=== PATIENT | female | born 1990 | race Caucasian/White ===

== ENCOUNTER 2024-04-05 15:52 | Emergency (ER) | payer OTHER, SELFPAY ==
--- NOTE | ~2024-04-05 | US_ITS ---
EXAMINATION: US OBSTETRICAL ULTRASOUND CLINICAL INFORMATION: patient with vaginal bleeding. COMPARISON: None available. LMP: 02/03/2024. Gestational age by maternal dates is 8 weeks 6 days. Estimated date of delivery by maternal dates is 11/09/2024. TECHNIQUE: Real-time scanning of the pelvis is acquired via transabdominal and transvaginal approach. FINDINGS: Uterus is anteverted in orientation. The cervix is closed. There is a single intrauterine gestational sac with visible yolk sac, embryo, and embryonic cardiac activity. Small subchorionic hemorrhage is noted on the posterior inferior aspect of the gestational sac, measuring 1.2 x 0.6 x 1.1 cm. Embryo HR: 163 beats per minute. CRL (crown rump length): 1.6 cm (8 weeks 1 day +/- 4 days). DUSTY (estimated date of delivery): 11/14/2024 +/- 4 days. MATERNAL ADNEXA: The right maternal ovary measures 3.2 x 2.4 x 2.8 cm, volume 11.1 mL. There is a 1.5 x 1.8 x 1.6 cm corpus luteal cyst in the right ovary. The left maternal ovary measures 2.7 x 2.0 x 1.6 cm, volume 4.4 mL. The ovary is unremarkable in appearance. There is no significant maternal adnexal mass. No maternal pelvic ascites. US/US OB pelvic and transvaginal IMPRESSION: 1. Single intrauterine gestation with ultrasound gestational age of 8 weeks 1 day +/- 4 days. Small subchorionic hemorrhage is noted. The cervix appears closed. 2. Estimated date of delivery is 11/14/2024 +/- 4 days. 3. No maternal adnexal mass or pelvic ascites. Electronically signed by: Carmina Leigh MD 04/05/2024 06:52 PM EDT
[2024-04-05 16:31] VITALS: BP 131/79; PULSE 90; RESP 18; TEMP 36.9; O2SAT 99; BMI 42.8
--- NOTE | 2024-04-05 16:34 | ED_ITS ---
HPI - General Adult General Chief complaint: Vaginal Bleeding Stated complaint: 8 weeks preg/bleeding Time Seen by Provider: 04/05/24 20:00 History of Present Illness ED Provider: Lillie VINSON narrative: The patient is a 33-year-old female who presents saying that she is approximately 8 weeks . She says that today she was doing nothing in particular when she lies that she was passing some blood from her vagina. This was not in response to any activity or stress or straining. No injury. The bleeding was not associated with any pain. She came directly to the emergency room. Since the original bleeding began the rate of bleeding seems to have subsided and now she is reporting that she is only having spotting. This is the patient's 2nd . Her 1st was uneventful. She plans on getting her OB care through [facility]. She has had 1 visit to confirm the but no actual visit yet. Related Data Allergies Allergy/AdvReac Type Severity Reaction Status Date / Time SEASONAL ALLERGIES Allergy Unknown ITCHY, Uncoded 04/05/24 16:33 NASAL CONGESTION Review of Systems 2 Review of Systems: Yes all other systems are reviewed and are negative PMFSH Social History Social History Smoked in Last 30 Days: No Use of substances other than those prescribed or required for medical reasons: No Advance Directives: No Advance Directives Information Provided: No Patient : No Physical Exam ED Vital Signs: Vital Signs - 24 hr 04/05/24 16:31 04/05/24 19:38 04/05/24 20:52 Temperature 98.4 F 98.2 F 98.2 F Pulse Rate 90 95 95 Respiratory Rate 18 16 16 Blood Pressure 131/79 123/75 123/75 Pulse Oximetry 99 97 97 Oxygen Delivery Method Room Air Room Air Room Air BMI result Body Mass Index 42.8 Const Other: The patient is awake, alert, pleasant, cooperative. She does not appear in any distress. HENMT Head: Yes normal to inspection Face and sinus: Yes normal facial exam Mouth: Normal oral and palatal mucosa present and moist mucous membranes Eyes General: appearance normal, both eyes and all related structures Resp Effort & Inspection: normal respiratory effort Auscultation: clear to auscultation bilaterally Cardio Rate: regular rate Rhythm: regular rhythm Heart sounds: S1 normal heart sound present and S2 normal heart sound present GI Other: The abdomen is soft and nontender Skin Other: Skin is dry and unremarkable Neuro Other: The patient is awake and alert with a normal mental status and seems grossly neurologically intact. Extrem Other: No peripheral edema Course Course Course Narrative: RME: DOne by Mart Zapata. 33 yold female . Patient states vaginal bleeding starting today with 8 weeks . Patient has not yet ultrasound. Patient denies any abdominal pain. Medications Administered Discontinued Medications Generic Name Dose Route Start Last Admin Trade Name Freq PRN Reason Stop Dose Admin Rho Immune Globulin 300 mcg 04/05/24 20:37 04/05/24 20:48 Rho(D) Immune Globulin 300 Mcg Syringe IM 04/05/24 20:38 300 mcg ONCE ONE Administration Medical Decision Making Medical Decision Making MDM Narrative: The patient is approximately 8 weeks and she presents with spontaneous painless vaginal bleeding. Ultrasound shows a live intrauterine with a heart rate of 160. There is a small subchorionic likely the explanation for her vaginal bleeding. The patient has a blood type of A negative. I spoke to the molder pipe covering covering for the patient's OB practice (a [facility] [place] practice). The patient will be given 300 mcg of RhoGAM and discharged follow up with the Ob practice as an outpatient. Lab Data 04/05/24 16:58 04/05/24 17:04 Labs: Lab Results 04/05/24 04/05/24 04/05/24 Range/Units 16:45 16:55 16:58 WBC 10.2 (4.8-10.8) X10*3/uL RBC 4.47 (4.20-5.50) X10*6/uL Hgb 13.4 (12.0-16.0) g/dl Hct 38.4 (37.0-47.0) % MCV 85.9 (80.0-98.0) fL MCH 30.0 (27.0-33.0) pg MCHC 34.9 (31.0-35.0) g/dl RDW 12.3 (11.0-16.0) % Plt Count 285 (160-400) X10*3/uL MPV 10.3 (9.4-12.3) fL Immature Gran % (Auto) 0.2 (0.0-0.4) % Neut % (Auto) 74.1 H (45-73) % Lymph % (Auto) 18.2 L (20-40) % [place] % (Auto) 6.2 (2-11) % Eos % (Auto) 0.8 (0-4) % Baso % (Auto) 0.5 (0-2) % Lymph # (Auto) 1.9 (1.2-4.9) X10*3/uL [place] # (Auto) 0.6 (0.1-1.2) X10*3/uL Eos # (Auto) 0.1 (0.0-0.4) X10*3/uL Baso # (Auto) 0.1 (0.0-0.2) X10*3/uL Abs Immat Gran (auto) 0.02 (0.00-0.03) X10*3/uL Absolute Neuts (auto) 7.5 (2.0-8.3) x10*3/uL Absolute Nucleated RBC 0.000 (0.0-0.012) X10*3/uL Nucleated RBC % (auto) 0.0 (0.0-0.2) /100WBC Hold Purple Top SEE NOTE PT 11.6 (10.9-12.4) SEC INR 1.0 (0.9-1.1) APTT 29.8 (26.0-36.8) SEC Sodium (135-145) mmol/L Potassium (3.3-5.1) mmol/L Chloride (96-108) mmol/L Carbon Dioxide (22-29) mmol/L Anion Gap (12-20) BUN (9-16) mg/dL Creatinine (0.5-1.4) mg/dL Estim Creat Clear Calc Estimated GFR Random Glucose (60-115) mg/dL Calcium (8.4-10.2) mg/dL Total Bilirubin (0.0-1.0) mg/dL AST (5-31) U/L ALT (0-31) U/L Alkaline Phosphatase (39-117) U/L Total Protein (6.5-8.0) g/dL Albumin (3.5-5.0) g/dL Beta HCG, Quant mIU/mL Urine Color RED Urine Appearance Hazy Urine pH 6.5 (5.0-9.0) Ur Specific [place] 1.025 (1.005-1.025) Urine Protein See Note (Neg-Trace) mg/dL Urine Glucose (UA) 100 H (Negative) mg/dL Urine Ketones >=80 (Negative) mg/dL Urine Blood Large (3+) H (Negative) Urine Nitrite See Note (Negative) Ur Leukocyte Esterase See Note (Negative) Urine RBC >20 H (0-2) /HPF Urine WBC 6-10 (0-5) /HPF Ur Squamous Epith Cells 3-5 (0-2) /HPF Urine Bacteria 3+ (None Seen) Hyaline Casts 0-2 (0-2) /LPF Urine Test POSITIVE H (NEGATIVE) Blood Type A Negative 04/05/24 Range/Units 17:04 WBC (4.8-10.8) X10*3/uL RBC (4.20-5.50) X10*6/uL Hgb (12.0-16.0) g/dl Hct (37.0-47.0) % MCV (80.0-98.0) fL MCH (27.0-33.0) pg MCHC (31.0-35.0) g/dl RDW (11.0-16.0) % Plt Count (160-400) X10*3/uL MPV (9.4-12.3) fL Immature Gran % (Auto) (0.0-0.4) % Neut % (Auto) (45-73) % Lymph % (Auto) (20-40) % [place] % (Auto) (2-11) % Eos % (Auto) (0-4) % Baso % (Auto) (0-2) % Lymph # (Auto) (1.2-4.9) X10*3/uL [place] # (Auto) (0.1-1.2) X10*3/uL Eos # (Auto) (0.0-0.4) X10*3/uL Baso # (Auto) (0.0-0.2) X10*3/uL Abs Immat Gran (auto) (0.00-0.03) X10*3/uL Absolute Neuts (auto) (2.0-8.3) x10*3/uL Absolute Nucleated RBC (0.0-0.012) X10*3/uL Nucleated RBC % (auto) (0.0-0.2) /100WBC Hold Purple Top PT (10.9-12.4) SEC INR (0.9-1.1) APTT (26.0-36.8) SEC Sodium 138 (135-145) mmol/L Potassium 3.5 (3.3-5.1) mmol/L Chloride 105 (96-108) mmol/L Carbon Dioxide 23 (22-29) mmol/L Anion Gap 14 (12-20) BUN 6 L (9-16) mg/dL Creatinine 0.59 (0.5-1.4) mg/dL Estim Creat Clear Calc 156.7 Estimated GFR > 60 Random Glucose 100 (60-115) mg/dL Calcium 9.6 (8.4-10.2) mg/dL Total Bilirubin 1.0 (0.0-1.0) mg/dL AST 14 (5-31) U/L ALT 11 (0-31) U/L Alkaline Phosphatase 76 (39-117) U/L Total Protein 7.3 (6.5-8.0) g/dL Albumin 4.1 (3.5-5.0) g/dL Beta HCG, Quant 56626 mIU/mL Urine Color Urine Appearance Urine pH (5.0-9.0) Ur Specific [place] (1.005-1.025) Urine Protein (Neg-Trace) mg/dL Urine Glucose (UA) (Negative) mg/dL Urine Ketones (Negative) mg/dL Urine Blood (Negative) Urine Nitrite (Negative) Ur Leukocyte Esterase (Negative) Urine RBC (0-2) /HPF Urine WBC (0-5) /HPF Ur Squamous Epith Cells (0-2) /HPF Urine Bacteria (None Seen) Hyaline Casts (0-2) /LPF Urine Test (NEGATIVE) Blood Type Discharge Plan Discharge Clinical Impression: Vaginal bleeding, Subchorionic hemorrhage in first trimester Patient Disposition: Home, Self-Care Instructions: Rh (By injection), Subchorionic Hemorrhage (ED) Additional Instructions: Your ultrasound shows that the source of bleeding was from what is called a ?subchorionic hemorrhage. ? This is a common source of bleeding during that usually resolves on its own over several days. Your testing was otherwise unremarkable and reassuring. Your testing shows that your blood type today is A negative. The negative refers to your Rh factor. women who are Rh negative and have bleeding episodes are given a dose of a medication called RhoGAM to help prevent complications later in the that can be related to the blood type of the fetus and the mother. You received 300 mcg of RhoGAM today. I spoke to one of the midwives at the [facility]. The molder pipe covering requested that you call their office tomorrow morning to schedule a follow up appointment for this week. Please call them if you have any additional questions or return to the emergency room if significantly worse. Interventions: ED Discharge Assessment Last Done: 04/05/24 20:52 Discharge Date/Time: 04/05/24 20:53 Print Language: Ivorian
[2024-04-05 17:12] LABS: MANUAL DIFF FLAG NO
[2024-04-05 17:15] LABS: Basophils Absolute Auto 0.1 X10*3/uL (0.0-0.2); Basophils Percent Auto 0.5 % (0-2); Eosinophils Absolute Auto 0.1 X10*3/uL (0.0-0.4); Eosinophils Percent Auto 0.8 % (0-4); Hematocrit 38.4 % (37.0-47.0); Hemoglobin 13.4 g/dl (12.0-16.0); Imm Gran Abs Auto 0.02 X10*3/uL (0.00-0.03); Imm Gran Pct Auto 0.2 % (0.0-0.4); Lymphocytes Absolute Auto 1.9 X10*3/uL (1.2-4.9); Lymphocytes Percent Auto 18.2 % (20-40); Mean Corpuscular HGB Conc 34.9 g/dl (31.0-35.0); Mean Corpuscular Volume 85.9 fL (80.0-98.0); Mean Platelet Volume 10.3 fL (9.4-12.3); Monocytes Absolute Auto 0.6 X10*3/uL (0.1-1.2); Monocytes Percent Auto 6.2 % (2-11); Neutrophils Absolute Auto 7.5 x10*3/uL (2.0-8.3); Neutrophils Percent Auto 74.1 % (45-73); Platelet Count 285 X10*3/uL (160-400); Red Blood Count 4.47 X10*6/uL (4.20-5.50); Red Cell Distribution Width 12.3 % (11.0-16.0); White Blood Count 10.2 X10*3/uL (4.8-10.8)
[2024-04-05 17:23] LABS: Prothrombin Time 11.6 SEC (10.9-12.4)
[2024-04-05 17:26] LABS: Partial Thromboplastin Time 29.8 SEC (26.0-36.8)
[2024-04-05 17:30] LABS: Appearance Urine Hazy; Color Urine RED; Specific Gravity - Urine 1.025 (1.005-1.025); UMIC TRIGGER UACC YES; Urine Blood Large (3+) (Negative)
[2024-04-05 17:39] LABS: UPreg QC Valid YES; Urine Pregnancy POSITIVE (NEGATIVE)
[2024-04-05 17:42] LABS: Alanine Aminotransferase 11 U/L (0-31); Albumin Level 4.1 g/dL (3.5-5.0); Alkaline Phosphatase 76 U/L (39-117); Anion Gap 14 (12-20); Aspartate Amino Transferase 14 U/L (5-31); Blood Urea Nitrogen 6 mg/dL (9-16); Calcium 9.6 mg/dL (8.4-10.2); Carbon Dioxide 23 mmol/L (22-29); Chloride 105 mmol/L (96-108); Creatinine Clr Calc Pharmacy 156.7; Estimated Glomerular Filt Rate > 60; Glucose Random 100 mg/dL (60-115); Potassium 3.5 mmol/L (3.3-5.1); Sodium 138 mmol/L (135-145); Total Protein 7.3 g/dL (6.5-8.0)
[2024-04-05 18:09] LABS: HCG Quantitative 94660 mIU/mL
[2024-04-05 18:19] LABS: PH 6.5 (5.0-9.0)
[2024-04-05 18:20] LABS: Glucose Urine UA 100 mg/dL (Negative)
[2024-04-05 18:22] LABS: Urine Ketones >=80 mg/dL (Negative)
[2024-04-05 18:24] LABS: Bacteria Urine 3+ (None Seen); Hyaline Casts Urine 0-2 /LPF (0-2); RBC Urine >20 /HPF (0-2); UACC Culture Trigger YES
[2024-04-05 19:38] VITALS: BP 123/75; PULSE 95; RESP 16; TEMP 36.8; O2SAT 97
[2024-04-05] MEDS: Rho(D) Immune Globulin 300 MCG SYRINGE IM (20:48)
[2024-04-05 20:52] VITALS: BP 123/75; PULSE 95; RESP 16; TEMP 36.8; O2SAT 97
== END 2024-04-05 20:53 | disposition home or self-care (01) ==
PROVIDERS: Physician Assistant; Emergency Provider Emergency Medicine
DX: O20.9 Hemorrhage in early pregnancy, unspecified (principal); Z3A.08 8 weeks gestation of pregnancy; R10.2 Pelvic and perineal pain; Z79.899 Other long term (current) drug therapy
CPT/HCPCS: 36415; 76801; 76817; 80053; 81001; 81025; 84702; 85025; 85610; 85730; 86900; 86901; 87086; 99284; J2790

== ENCOUNTER 2024-06-02 08:48 | Outpatient (AMB) | payer OTHER, SELFPAY ==
[2024-06-02 09:26] VITALS: BP 108/72; PULSE 102; TEMP 36; O2SAT 95
--- NOTE | 2024-06-02 09:26 | AM.OFFWIN_ITS ---
Intake Vital Signs 06/02/24 09:26 Weight 238 lb BP 108/72 Blood Pressure Location Rt brachial Position Sitting Pulse 102 H Pulse Source Pulse Oximeter Temp 96.8 F Temp Source Temporal Artery Scan Pulse Oximetry (%) 95 Intake Visit Reasons: [employer] chest (burning sensation) cough Intake Note: Patient here for cough that started yesterday. Patient Tobacco Use Status: Never used Tobacco Allergies SEASONAL ALLERGIES Allergy (Unknown, Uncoded 06/02/24 09:27) ITCHY, NASAL CONGESTION Do you need a note to return to daycare/school/sports/work: Yes HPI HPI Comments History of Present Illness Details This is a 34-year-old female, , with no stated past medical history presenting for evaluation of a cough and sore throat that she has had for the past 1 day. Patient denies having any fevers, chills, ear pain, chest pain or shortness for breath. She has been using cough drops only without relief of her symptoms. [facility] Social History Patient Tobacco Use Status: Never used Tobacco Review of Systems Const All systems reviewed & are unremarkable except as noted in HPI and below Denies chills, Reports fatigue and Denies fever(s) Eyes Reports no additional complaints ENT Reports no additional complaints, Denies otalgia, Denies nasal discharge, Denies sinus pressure, Reports sore throat and Denies throat swelling Card Reports as per HPI and Denies chest pain Resp Reports as per HPI, Reports cough, Denies hemoptysis, Denies stridor and Denies wheezing GI Reports no additional complaints Reports no additional complaints Musc Reports no additional complaints Skin/Breast Reports system reviewed and no additional complaints, except as documented Neuro Reports no additional complaints Psych Reports no additional complaints Endo Reports no additional complaints and Reports fatigue Zaid/Lymph Reports no additional complaints Aller/Immun Reports no additional complaints, Denies throat swelling and Denies wheezing Physical Exam Vital Signs: Last Vital Signs Temp 96.8 F 06/02/24 09:26 Pulse 102 H 06/02/24 09:26 BP 108/72 06/02/24 09:26 Pulse Ox 95 06/02/24 09:26 Const General: cooperative, healthy appearing, comfortable, no acute distress, well developed, alert and awake Nutritional Appearance: well nourished Orientation/consciousness: patient oriented x3 Limitations: no limitations HEENT Head: Yes normal to inspection and Yes normocephalic Ears: hearing grossly normal bilaterally, external ears normal, TM's normal bilaterally and EAC's normal General nose exam: Normal external nose present Face and sinus: Yes normal facial exam and Yes sinuses nontender Mouth: Normal oral and palatal mucosa present and moist mucous membranes Throat: Yes posterior oropharynx normal and Yes postnasal drainage Eyes General: appearance normal, both eyes and all related structures Visual Patel: normal visual patel by confrontation Periorbital: periorbital findings normal Eyelids: Yes eyelids normal Conjunctivae: conjunctivae normal EOM: EOMs intact bilaterally Neck Lymphatic: no lymphadenopathy noted Resp Effort & Inspection: normal respiratory effort, able to speak in complete sentences, Actively coughing and no respiratory distress Auscultation: clear to auscultation bilaterally Cardio Rate: regular rate (88 bpm upon examination) Rhythm: regular rhythm Skin General skin exam: no rashes or lesions noted Neuro General: patient oriented x3 Psych Appearance: grossly normal Mental Status: mental status grossly normal Insight: Good insight present (Psych) Judgement: Good judgement present (Psych) Assessment & Plan Assessment & Plan (1) Acute upper respiratory infection: Comment: Patient is afebrile and in no acute distress. No imaging or other laboratories are warranted at this time given her history coupled with her examination. Code(s): J06.9 - Acute upper respiratory infection, unspecified Plan: Tylenol as needed for sore throat, increase clear fluids daily, rest as tolerated. Coding Level of Care Code Est Pt Level 3 (18970) Diagnoses Acute upper respiratory infection J06.9 Time Spent (min) 20
== END 2024-06-02 10:01 | disposition home or self-care (01) ==
PROVIDERS: Visit Provider Physician Assistant
DX: J06.9 Acute upper respiratory infection, unspecified (principal)

== ENCOUNTER → 2024-06-02 08:48 | Outpatient (BNVA) | payer OTHER, SELFPAY | PROVIDERS: Visit Provider Physician Assistant | DX: J06.9 Acute upper respiratory infection, unspecified (principal) | CPT/HCPCS: 99212 ==

== ENCOUNTER 2024-12-13 01:05 | Emergency (ER) | payer OTHER, SELFPAY ==
--- NOTE | ~2024-12-13 | US_ITS ---
CLINICAL HISTORY: RUQ pain, concern for GB US abdomen limited Comparison: None provided Findings: Partially visualized liver is normal in echotexture. There is no intrahepatic bile duct dilatation. The common duct is 5 mm in diameter. The gallbladder is nondilated. Multiple shadowing stones including at least 1 nonmobile stone in the gallbladder neck. Gallbladder wall thickening up to 5 mm with small volume pericholecystic fluid. Negative sonographic Flores's sign. The main portal vein is antegrade. IMPRESSION: Cholelithiasis with wall thickening and pericholecystic fluid. Despite a negative sonographic Flores's sign, findings are concerning for acute cholecystitis. This document has been electronically signed by: Ashley Burns MD on 12/13/2024 03:53:49
--- NOTE | ~2024-12-13 | CT_ITS ---
CLINICAL HISTORY: CBD stone? CT abdomen and pelvis without contrast Comparison: US - US ABDOMEN LIMITED - 12/13/24 02:32 EDT Findings: The lung bases are clear. Gallbladder wall thickening and gallstones noted. No significant pericholecystic stranding identified. No common bile duct dilation or common bile duct stone by CT. The unenhanced liver, spleen, adrenal glands and pancreas are unremarkable. Kidneys, ureters and bladder are normal Uterus and adnexa are within normal limits. Mild fecal retention throughout the colon. No small bowel obstruction or free air. No acute osseous finding. Impression: No evidence of common bile duct dilation or common bile duct stone by CT. Gallbladder wall thickening and cholelithiasis. Additional incidental findings This document has been electronically signed by: Jame Cochran MD on 12/13/2024 08:20:34
[2024-12-13 01:07] VITALS: BP 123/78; PULSE 69; RESP 18; TEMP 36.7; O2SAT 96; BMI 36.6
[2024-12-13 01:29] LABS: Basophils Percent Auto 0.3 % (0-2); Eosinophils Absolute Auto 0.1 X10*3/uL (0.0-0.4); Eosinophils Percent Auto 1.1 % (0-4); Hematocrit 37.3 % (37.0-47.0); Hemoglobin 12.6 g/dl (12.0-16.0); Imm Gran Abs Auto 0.03 X10*3/uL (0.00-0.03); Imm Gran Pct Auto 0.3 % (0.0-0.4); Lymphocytes Absolute Auto 1.1 X10*3/uL (1.2-4.9); Lymphocytes Percent Auto 12.9 % (20-40); MANUAL DIFF FLAG NO; Mean Corpuscular HGB Conc 33.8 g/dl (31.0-35.0); Mean Corpuscular Hemoglobin 29.2 pg (27.0-33.0); Mean Corpuscular Volume 86.5 fL (80.0-98.0); Mean Platelet Volume 10.7 fL (9.4-12.3); Monocytes Absolute Auto 0.6 X10*3/uL (0.1-1.2); Monocytes Percent Auto 6.6 % (2-11); Neutrophils Absolute Auto 6.9 x10*3/uL (2.0-8.3); Neutrophils Percent Auto 78.8 % (45-73); Platelet Count 283 X10*3/uL (160-400); Red Blood Count 4.31 X10*6/uL (4.20-5.50); Red Cell Distribution Width 13.2 % (11.0-16.0); White Blood Count 8.8 X10*3/uL (4.8-10.8)
[2024-12-13 01:47] LABS: Alanine Aminotransferase 263 U/L (0-31); Albumin Level 4.3 g/dL (3.5-5.0); Alkaline Phosphatase 244 U/L (39-117); Anion Gap 14 (12-20); Aspartate Amino Transferase 363 U/L (5-31); Bilirubin Total 1.6 mg/dL (0.0-1.0); Blood Urea Nitrogen 15 mg/dL (9-16); Calcium 10.2 mg/dL (8.4-10.2); Carbon Dioxide 26 mmol/L (22-29); Chloride 105 mmol/L (96-108); Creatinine Clr Calc Pharmacy 114.9; Estimated Glomerular Filt Rate > 60; Glucose Random 128 mg/dL (60-115); Potassium 3.4 mmol/L (3.3-5.1); Sodium 142 mmol/L (135-145); Total Protein 7.3 g/dL (6.5-8.0)
--- NOTE | 2024-12-13 01:51 | ED.GENADULT ---
HPI - General Adult General Chief complaint: Abdominal Pain Stated complaint: abd pain Time Seen by Provider: 12/13/24 01:50 Source: patient Mode of arrival: ambulatory Limitations: no limitations History of Present Illness ED Provider: Nidhi Burns PA-C HPI narrative: Patient is a 34 year old assigned female at with a history of recent delivery of child presenting to the emergency department today with upper abdominal pain. Patient states that last week she had an episode of upper abdominal pain that radiates to her back. Patient states that it went away so she didn't get evaluated for it. Patient states that tonight she had very painful upper abdominal pain that radiated to her back again. Patient denies any dizziness, lightheadedness, nausea, vomiting, fever, chills, blurry vision, double vision, loss of vision, chest pain, difficulty breathing, shortness of breath, back pain, night sweats, pain with urination, increased urinary frequency, increased urinary urgency, blood in her urine or stool, syncope or a near syncopal episode, recent trauma or falls, bowel incontinence, bladder incontinence, or any other complaints at this time. Relieving factors: none Exacerbating factors: none Associated symptoms: denies other symptoms Treatments prior to arrival: none Related Data Home Medications ?Medication ?Instructions ?Recorded ?Confirmed No Known Home Meds 12/13/24 12/13/24 Allergies Allergy/AdvReac Type Severity Reaction Status Date / Time SEASONAL ALLERGIES Allergy Unknown ITCHY, Uncoded 12/13/24 01:11 NASAL CONGESTION Review of Systems Constitutional: Constitutional: Reports no additional constitutional complaints, Denies chills, Denies fever(s) and Denies night sweats Eyes: Eyes: Reports no additional eye complaints, Denies blurry vision, Denies change in vision, Denies diplopia, Denies eye discharge, Denies loss of vision and Denies eye pain ENT: Denies dizziness Cardiovascular: Cardiovascular: Reports no additional cardiovascular complaints, Denies chest pain, Denies lightheadedness, Denies Loss of Consciousness and Denies dyspnea Respiratory: Respiratory: Reports no additional respiratory complaints and Denies dyspnea Gastrointestinal: Gastrointestinal: Reports no additional gastrointestinal complaints, Reports abdominal pain, Denies melena, Denies hematochezia, Denies change in bowel habits and Denies change in stool character Genitourinary: Genitourinary: Denies hematuria, Denies urinary frequency, Denies dysuria, Denies urinary incontinence, Denies urinary hesitancy and Denies urinary urgency Musculoskeletal: Musculoskeletal: Reports no additional musculoskeletal complaints, Denies numbness and Denies tingling Neurologic: Denies dizziness, Denies loss of vision, Denies numbness and Denies tingling Psychiatric: Psychiatric: Reports no additional psychiatric complaints Endocrine: Endocrine: Reports no additional endocrine complaints Hematologic/Lymphatic: Hematologic/Lymphatic: Reports no additional hematologic/lymphatic complaints Allergic/Immunologic: Allergic/Immunologic: Reports no additional allergic/immunologic complaints [facility] Past Medical History Attestation statement: The following information was validated with the patient. Source: old records reviewed and nursing notes reviewed Medical History Upper abdominal pain Social History Social History Patient Tobacco Use Status: Never used Tobacco Physical Exam ED Vital Signs: Vital Signs - 24 hr 12/13/24 01:07 12/13/24 04:46 12/13/24 09:26 Temperature 98.1 F 98.4 F 98.6 F Pulse Rate 69 63 58 Respiratory Rate 18 16 18 Blood Pressure 123/78 132/74 122/77 Pulse Oximetry 96 98 96 Oxygen Delivery Method Room Air Room Air Room Air BMI result Body Mass Index 36.6 Const General: cooperative, no acute distress, alert and awake Nutritional Appearance: well nourished Orientation/consciousness: patient oriented x3 HENMT Head: Yes normal to inspection and Yes atraumatic Ears: hearing grossly normal bilaterally and external ears normal General nose exam: Normal external nose present, no nasal discharge noted and no epistaxis Face and sinus: Yes normal facial exam, No abrasion and No laceration Mouth: Normal oral and palatal mucosa present, no drooling and no muffled voice Eyes General: appearance normal, both eyes and all related structures Periorbital: periorbital findings normal Eyelids: Yes eyelids normal Conjunctivae: conjunctivae normal Pupils: Equal, round and reactive pupils present EOM: EOMs intact bilaterally Neck Neck: Yes normal visual inspection, Yes full ROM and Yes no lymphadenopathy Resp Effort & Inspection: normal respiratory effort and able to speak in complete sentences GI Palpation (GI): Soft to palpation, not firm, Tenderness to palpation present (GI) in the RUQ, no guarding and not rigid Neuro General: patient oriented x3, moves all extremities and CN's II-XI intact bilaterally Cranial nerves: Yes Equal, round and reactive pupils present Cognition (Neuro): normal cognition Extrem General: Yes normal to inspection, Yes full ROM and Yes capillary refill normal Psych Appearance: grossly normal Mental Status: mental status grossly normal Affect: normal affect Attitude: cooperative Thought process: Normal thought process present Thought content: Normal thought content present Insight: Good insight present (Psych) Course Reevaluation(s) Reevaluation #1: Dr. Lucas evaluated the patient, patient is currently asymptomatic and we will follow up in his office for elective cholecystectomy Time: 09:02 Medical Decision Making Medical Decision Making MDM Narrative: Patient is a 34 year old assigned female at with a history of recent delivery of child presenting to the emergency department today with upper abdominal pain. Patient's physical exam was as noted in the physical exam portion of this note. Patient's blood work showed markedly elevated LFTs including a bili of 1.6, AST of 363, ALT of 263, and alk phos of 244. Patient's urine showed no acute process. Patient's RUQ US showed an obstructing stone with gallbladder wall thickening concerning for choledocolithiasis. Patient declined pain medication at this time and is non-toxic appearing. I spoke with the general surgery team who agreed to admission. I explained my physical exam findings as well as all test results to the patient. I answered all questions asked by the patient. Patient verbalized agreement and understanding with this treatment plan and admission. Differential Diagnosis Differential Diagnoses: The differential diagnosis associated with the presentation includes Choledocolithiasis Cholecystitis Abdominal pain Admission/Observation Consideration of admission/observation: Escalation of care including admission/observation considered Patient admitted as noted in the MDM Rationale portion of this note. Consult Healthcare Provider Management of the patient was discussed with: [employer] (spoke to the general surgery team who agreed to admission) Lab Data [facility] Lab Attestation statement: I reviewed the patient's lab results. My interpretation of these results are in the MDM Rationale portion of this note. 12/13/24 01:24 12/13/24 01:24 Labs: Lab Results 12/13/24 12/13/24 Range/Units 01:24 02:16 WBC 8.8 (4.8-10.8) X10*3/uL RBC 4.31 (4.20-5.50) X10*6/uL Hgb 12.6 (12.0-16.0) g/dl Hct 37.3 (37.0-47.0) % MCV 86.5 (80.0-98.0) fL MCH 29.2 (27.0-33.0) pg MCHC 33.8 (31.0-35.0) g/dl RDW 13.2 (11.0-16.0) % Plt Count 283 (160-400) X10*3/uL MPV 10.7 (9.4-12.3) fL Immature Gran % (Auto) 0.3 (0.0-0.4) % Neut % (Auto) 78.8 H (45-73) % Lymph % (Auto) 12.9 L (20-40) % [place] % (Auto) 6.6 (2-11) % Eos % (Auto) 1.1 (0-4) % Baso % (Auto) 0.3 (0-2) % Lymph # (Auto) 1.1 L (1.2-4.9) X10*3/uL [place] # (Auto) 0.6 (0.1-1.2) X10*3/uL Eos # (Auto) 0.1 (0.0-0.4) X10*3/uL Baso # (Auto) 0.0 (0.0-0.2) X10*3/uL Abs Immat Gran (auto) 0.03 (0.00-0.03) X10*3/uL Absolute Neuts (auto) 6.9 (2.0-8.3) x10*3/uL Absolute Nucleated RBC 0.000 (0.0-0.012) X10*3/uL Nucleated RBC % (auto) 0.0 (0.0-0.2) /100WBC Sodium 142 (135-145) mmol/L Potassium 3.4 (3.3-5.1) mmol/L Chloride 105 (96-108) mmol/L Carbon Dioxide 26 (22-29) mmol/L Anion Gap 14 (12-20) BUN 15 (9-16) mg/dL Creatinine 0.73 (0.5-1.4) mg/dL Estim Creat Clear Calc 114.9 Estimated GFR > 60 Random Glucose 128 H (60-115) mg/dL Calcium 10.2 D (8.4-10.2) mg/dL Total Bilirubin 1.6 H (0.0-1.0) mg/dL AST 363 H (5-31) U/L ALT 263 H (0-31) U/L Alkaline Phosphatase 244 H (39-117) U/L Total Protein 7.3 (6.5-8.0) g/dL Albumin 4.3 (3.5-5.0) g/dL Lipase 23 (8-78) U/L Beta HCG, Quant < 2 mIU/mL Urine Color Yellow Urine Appearance Clear Urine pH 6.0 (5.0-9.0) Ur Specific [place] 1.010 (1.005-1.025) Urine Protein Negative (Neg-Trace) mg/dL Urine Glucose (UA) Negative (Negative) mg/dL Urine Ketones Negative (Negative) mg/dL Urine Blood Negative (Negative) Urine Nitrite Negative (Negative) Ur Leukocyte Esterase Small (1+) H (Negative) Urine RBC 0-2 (0-2) /HPF Urine WBC 6-10 H (0-5) /HPF Ur Squamous Epith Cells 3-5 (0-2) /HPF Urine Bacteria None Seen (None Seen) Hyaline Casts 0-2 (0-2) /LPF Independent Interpretation I performed an independent interpretation of an: Ultrasound Interpretation: My interpretation is in agreement with the radiologist's impression of this imaging study. CLINICAL HISTORY: RUQ pain, concern for GB US abdomen limited Comparison: None provided Findings: Partially visualized liver is normal in echotexture. There is no intrahepatic bile duct dilatation. The common duct is 5 mm in diameter. The gallbladder is nondilated. Multiple shadowing stones including at least 1 nonmobile stone in the gallbladder neck. Gallbladder wall thickening up to 5 mm with small volume pericholecystic fluid. Negative sonographic Flores's sign. The main portal vein is antegrade. IMPRESSION: Cholelithiasis with wall thickening and pericholecystic fluid. Despite a negative sonographic Flores's sign, findings are concerning for acute cholecystitis. This document has been electronically signed by: Ashley Burns MD on 12/13/2024 03:53:49 Dictated By: Ashley Burns MD Signed By: Electronically signed by Ashley Burns MD 12/13/24 1494 Radiology Impression Discussion of test interpretation with radiology: I have reviewed the radiologist's reading. Critical Care Time Critical Care Time Critical Care Time: Yes Total Critical Care Time: 38 Attestation: I spent 38 minutes of Critical Care Time with this patient. This does not include time spent on separately reported billable procedures. Discharge Plan Discharge Clinical Impression: Choledocholithiasis, Biliary colic Patient Disposition: Admitted As Inpatient Additional Instructions: Please follow up with Dr. Lucas for likely elective cholecystectomy, small meals, rich in protein, non-fatty, anything worse come back to the ER Based on your symptoms and abnormalities of the blood work, it is fairly convincing that your symptoms were due to biliary colic Interventions: ED Discharge Assessment Last Done: 12/13/24 09:26 Discharge Date/Time: 12/13/24 10:28 Print Language: Faroese
[2024-12-13 01:55] LABS: HCG Quantitative < 2 mIU/mL
[2024-12-13 02:01] LABS: Lipase 23 U/L (8-78)
[2024-12-13 02:25] LABS: Appearance Urine Clear; Color Urine Yellow; Glucose Urine UA Negative (Negative); Leukocyte Esterase Urine Small (1+) (Negative); Nitrite Urine Negative (Negative); UMIC TRIGGER UACC YES; Urine Blood Negative (Negative); Urine Ketones Negative (Negative); Urine Protein Negative (Neg-Trace)
[2024-12-13 02:55] LABS: Bacteria Urine None Seen (None Seen); Hyaline Casts Urine 0-2 /LPF (0-2); RBC Urine 0-2 /HPF (0-2); UACC Culture Trigger YES
[2024-12-13 04:46] VITALS: BP 132/74; PULSE 63; RESP 16; TEMP 36.9; O2SAT 98
--- NOTE | 2024-12-13 08:29 | PHA.MEDREC ---
Pharmacy Consult ? Medication Reconciliation Pharmacy has completed the medication reconciliation. Patient confirmed to be on no medications at home.
--- NOTE | 2024-12-13 08:59 | P.HPGS_ITS ---
History of Present Illness History of Present Illness Date of Service: 12/13/24 Chief complaint: abd pain Narrative: Mary Gupta is a 34 year old female here in the ER for upper abdominal pain. She says that this started late last night. She this is a equally on both the left and right side. She denied any nausea or vomiting. She says that this lasted for maybe 1 or 2 hours. She says that by the time she came to the ER, her pain had resolved completely She currently feels well and denies any abdominal pain. She denies any nausea or vomiting currently. She denies any diarrhea or any other GI complaints She does not see any primary care physician says she does not take any medications. She says that she does not have any significant medical problems currently. She has had no abdominal surgeries Review of Systems Constitutional: Constitutional: Denies chills and Denies fever(s) Cardiovascular: Cardiovascular: Denies chest pain, Denies dyspnea and Denies dyspnea on exertion Respiratory: Respiratory: Denies cough, Denies dyspnea and Denies dyspnea on exertion Gastrointestinal: Gastrointestinal: Denies hematochezia and Denies change in bowel habits Genitourinary: Genitourinary: Denies hematuria Musculoskeletal: Musculoskeletal: Denies back pain and Denies limited range of motion Neurologic: Denies focal weakness and Denies convulsions Psychiatric: Psychiatric: Denies depression and Denies mood swings PMF Past Medical History Medical History (Updated 12/13/24 @ 09:04 by Zana Baird DO) Upper abdominal pain Social History Social History Patient Tobacco Use Status: Never used Tobacco Meds Allergies Allergy/AdvReac Type Severity Reaction Status Date / Time SEASONAL ALLERGIES Allergy Unknown ITCHY, Uncoded 12/13/24 01:11 NASAL CONGESTION Home Medications ?Medication ?Instructions ?Recorded ?Confirmed ?Last Taken ?Type No Known Home Meds 12/13/24 12/13/24 Un known History Physical Exam Vital Signs: Vital Signs: Last Vital Signs Temp 98.4 F 12/13/24 04:46 Pulse 63 12/13/24 04:46 Resp 16 12/13/24 04:46 BP 132/74 12/13/24 04:46 Pulse Ox 98 12/13/24 04:46 O2 Del Method Room Air 12/13/24 04:46 BMI result Body Mass Index 36.6 Const: General: comfortable and no acute distress Orientation/consciousness: patient oriented x3 Neck: Neck: Yes no lymphadenopathy Resp: Auscultation: clear to auscultation bilaterally Cardio: Rhythm: regular rhythm GI: Other: No Flores's sign, no tenderness at all on any part of her abdomen Palpation (GI): Soft to palpation, nontender and no guarding Neuro: General: patient oriented x3 Results Results Labs: Short CBC 12/13/24 Range/Units 01:24 WBC 8.8 (4.8-10.8) X10*3/uL Hgb 12.6 (12.0-16.0) g/dl Hct 37.3 (37.0-47.0) % Plt Count 283 (160-400) X10*3/uL BMP 12/13/24 01:24 Sodium 142 Potassium 3.4 Chloride 105 Carbon Dioxide 26 BUN 15 Creatinine 0.73 Calcium 10.2 D Liver Function 12/13/24 Range/Units 01:24 Total Bilirubin 1.6 H (0.0-1.0) mg/dL AST 363 H (5-31) U/L ALT 263 H (0-31) U/L Alkaline Phosphatase 244 H (39-117) U/L Albumin 4.3 (3.5-5.0) g/dL Urine 12/13/24 Range/Units 02:16 Urine Color Yellow Urine Appearance Clear Urine pH 6.0 (5.0-9.0) Ur Specific [place] 1.010 (1.005-1.025) Urine Protein Negative (Neg-Trace) mg/dL Urine Glucose (UA) Negative (Negative) mg/dL Assessment and Plan (1) Upper abdominal pain: Status: Acute She does have gallstones on ultrasound. Her ultrasound does not suggest cholecystitis although her CAT scan shows some thickening She does not have any tenderness at all seen with deep palpation. She has no leukocytosis Her CAT scan does not suggest common bile duct stones. She has some elevation of AST and ALT. I did review with her the CAT scan findings. Her episode of abdominal pain was not limited to the right upper quadrant. I am uncertain if this is secondary to her gallstones. I did offer her the option of proceeding with laparoscopic cholecystectomy with possible open cholecystectomy. I discussed the technique o f this procedure as was the risks, benefits, and alternatives She says that she has had no pain at all even when she 1st arrived in the ER and would like to go home. She says she will follow up with me in the office. I also recommended to her to see if she can establish a relationship with a primary care physician. She may need follow up LFTs as an outpatient. Procedures Date of Service Date of Service: 12/13/24
[2024-12-13 09:26] VITALS: BP 122/77; PULSE 58; RESP 18; TEMP 37; O2SAT 96
--- NOTE | 2024-12-13 16:31 | P.CONGS_ITS ---
History of Present Illness Consult details Consult date: 12/13/24 Narrative: Mary Gupta is a 34 year old female seen earlier here in the ER for upper abdominal pain. She says that this started late last night. She this is a equally on both the left and right side. She denied any nausea or vomiting. She says that this lasted for maybe 1 or 2 hours. She says that by the time she came to the ER, her pain had resolved completely She currently feels well and denies any abdominal pain. She denies any nausea or vomiting currently. She denies any diarrhea or any other GI complaints She does not see any primary care physician says she does not take any medications. She says that she does not have any significant medical problems currently. She has had no abdominal surgeries Review of Systems 2 Constitutional: Constitutional: Denies chills and Denies fever(s) Cardiovascular: Cardiovascular: Denies chest pain, Denies dyspnea and Denies dyspnea on exertion Respiratory: Respiratory: Denies cough, Denies dyspnea and Denies dyspnea on exertion Gastrointestinal: Gastrointestinal: Denies hematochezia and Denies change in bowel habits Genitourinary: Genitourinary: Denies hematuria Musculoskeletal: Musculoskeletal: Denies back pain and Denies limited range of motion Neurologic: Denies focal weakness and Denies convulsions Psychiatric: Psychiatric: Denies depression and Denies mood swings PMFSH Past Medical History Medical History Upper abdominal pain Social History Social History Patient Tobacco Use Status: Never used Tobacco Meds Allergies Allergy/AdvReac Type Severity Reaction Status Date / Time SEASONAL ALLERGIES Allergy Unknown ITCHY, Uncoded 12/13/24 01:11 NASAL CONGESTION Home Medications ?Medication ?Instructions ?Recorded ?Confirmed ?Last Taken ?Type No Known Home Meds 12/13/24 12/13/24 Un known History Physical Exam 2 Vital Signs: Vital Signs: Last Vital Signs Temp 98.6 F 12/13/24 09:26 Pulse 58 12/13/24 09:26 Resp 18 12/13/24 09:26 BP 122/77 12/13/24 09:26 Pulse Ox 96 12/13/24 09:26 O2 Del Method Room Air 12/13/24 09:26 BMI result Body Mass Index 36.6 Const: General: comfortable and no acute distress O rientation/consciousness: patient oriented x3 Eyes: Other: Sclerae anicteric Neck: Neck: Yes no lymphadenopathy Resp: Auscultation: clear to auscultation bilaterally Cardio: Rhythm: regular rhythm GI: Other: No Flores's sign, no tenderness at all on any part of the abdomen Palpation (GI): Soft to palpation, nontender and no guarding Neuro: General: patient oriented x3 Results Labs 12/13/24 01:24 12/13/24 01:24 Labs: Abnormal lab results 12/13/24 12/13/24 Range/Units 01:24 02:16 Neut % (Auto) 78.8 H (45-73) % Lymph % (Auto) 12.9 L (20-40) % Lymph # (Auto) 1.1 L (1.2-4.9) X10*3/uL Random Glucose 128 H (60-115) mg/dL Total Bilirubin 1.6 H (0.0-1.0) mg/dL AST 363 H (5-31) U/L ALT 263 H (0-31) U/L Alkaline Phosphatase 244 H (39-117) U/L Ur Leukocyte Esterase Small (1+) H (Negative) Urine WBC 6-10 H (0-5) /HPF Short CBC 12/13/24 Range/Units 01:24 WBC 8.8 (4.8-10.8) X10*3/uL Hgb 12.6 (12.0-16.0) g/dl Hct 37.3 (37.0-47.0) % Plt Count 283 (160-400) X10*3/uL BMP 12/13/24 01:24 Sodium 142 Potassium 3.4 Chloride 105 Carbon Dioxide 26 BUN 15 Creatinine 0.73 Calcium 10.2 D Liver Function 12/13/24 Range/Units 01:24 Total Bilirubin 1.6 H (0.0-1.0) mg/dL AST 363 H (5-31) U/L ALT 263 H (0-31) U/L Alkaline Phosphatase 244 H (39-117) U/L Albumin 4.3 (3.5-5.0) g/dL Urine 12/13/24 Range/Units 02:16 Urine Color Yellow Urine Appearance Clear Urine pH 6.0 (5.0-9.0) Ur Specific [place] 1.010 (1.005-1.025) Urine Protein Negative (Neg-Trace) mg/dL Urine Glucose (UA) Negative (Negative) mg/dL All other labs normal. Imaging Abdomen CT scan report/results: report reviewed and image reviewed CT scan - pelvis: report reviewed and image reviewed Abdominal ultrasound report/results: report reviewed and image reviewed Assessment and Plan (1) Upper abdominal pain: Status: Acute She came in for an episode of upper abdominal pain last night. She says this was based on the left and the right side She says that the pain had resolved completely as soon as she got to the ER. She has had no pain since then. She denies any nausea or vomiting. She has no tenderness or Flores's sign Her imaging studies show gallstones and her CAT scan shows some thickening of the gallbladder with a stone in the neck. However, clinically she has no acute cholecystitis. She does not have leukocytosis. She has a mild elevation of her LFTs but no evidence of common bile duct obstruction imaging I had of her the option of being admitted for cholecystectomy. I explained the technique of this procedure. I reviewed the risks including but not limited to bleeding, infections, injury to other organs, as well as the benefits and alternatives She says that she does not feel that she needs to stay in the hospital as she has had no pain or tenderness at all. She was advised to see me in the office as an outpatient follow-up. She may need a follow up LFTs. She was also advised to establish a relationship with a primary care physician. She understands the risk of recurrent episodes. Procedures Date of Service Date of Service: 12/14/24
== END 2024-12-13 10:28 | disposition admitted as inpatient to this hospital (09) ==
PROVIDERS: Physician Assistant Medical; Emergency Provider Internal Medicine
DX: K80.50 Calculus of bile duct without cholangitis or cholecystitis without obstruction (principal); R10.10 Upper abdominal pain, unspecified; M54.50 Low back pain, unspecified; R10.11 Right upper quadrant pain
CPT/HCPCS: 36415; 74176; 76705; 80053; 81001; 83690; 84702; 85025; 87086; 99284

== ENCOUNTER → 2024-12-13 01:34 | Outpatient (BNV) | payer OTHER, SELFPAY | PROVIDERS: Emergency Provider Internal Medicine; Visit Provider Surgery | DX: R10.10 Upper abdominal pain, unspecified (principal) | CPT/HCPCS: 99283 ==

== ENCOUNTER → 2024-12-13 01:50 | Outpatient (BNV) | payer OTHER, SELFPAY | PROVIDERS: Emergency Provider Internal Medicine; Visit Provider Radiology Diagnostic Radiology | DX: K80.20 Calculus of gallbladder without cholecystitis without obstruction (principal); K82.8 Other specified diseases of gallbladder | CPT/HCPCS: 74176; 76705 ==

== ENCOUNTER 2024-12-24 19:16 | Emergency (ER) | payer OTHER, SELFPAY ==
--- NOTE | ~2024-12-24 | US_ITS ---
CLINICAL HISTORY: Known gallstones. Cholecystitis? US Abdomen Limited, Right Upper Quadrant COMPARISON: Portions of CT/SR - CT ABDOMEN PELVIS WO IV CON - 12/13/24 06:44 EDT US - US ABDOMEN LIMITED - 12/13/24 02:32 EDT FINDINGS: Echogenic, shadowing calculi in the gallbladder. No gallbladder wall thickening. No pericholecystic fluid. Negative sonographic Flores sign. No bile duct dilation. Common bile duct measures 4 mm in diameter. IMPRESSION: Cholelithiasis without evidence of acute cholecystitis. This document has been electronically signed by: Feilpe Tristan MD on 12/24/2024 20:43:11
[2024-12-24 19:27] VITALS: BP 138/86; PULSE 82; RESP 16; TEMP 36.6; O2SAT 97; BMI 37.2
--- NOTE | 2024-12-24 20:20 | ED.GENADULT ---
HPI - General Adult General Chief complaint: Abdominal Pain Stated complaint: Gallbladder flare up Time Seen by Provider: 12/24/24 20:29 Source: patient Mode of arrival: ambulatory Limitations: no limitations History of Present Illness ED Provider: Tyrone MCKEON HPI narrative: The patient is a 34-year-old female presenting to the ED for evaluation of right upper quadrant abdominal pain which began earlier today, resolve but then reoccurred prompting ED evaluation. Patient reports she was seen here on 12/13 and diagnosed with gallstones, at that time patient was appropriate for discharge home and was scheduled for outpatient follow up with GI on 01/13. Patient reports pain had not recurred until today, patient reports pain began after eating lunch, patient reports pain improved however after eating dinner she had recurrent postprandial pain and presents to the ED for evaluation. The patient denies associated fever/chills, vomiting, diarrhea, chest pain, shortness of breath or recent trauma. The patient denies surgical abdominal history. Related Data Previous Rx's ?Medication ?Instructions ?Recorded acetaminophen 500 mg capsule 1,000 mg (2 x 500 mg) PO .q8 PRN 12/24/24 fever or pain #30 caps ibuprofen 600 mg tablet 600 mg PO Q8H PRN fever or pain 12/24/24 #30 tabs Allergies Allergy/AdvReac Type Severity Reaction Status Date / Time SEASONAL ALLERGIES Allergy Unknown ITCHY, Uncoded 12/24/24 19:30 NASAL CONGESTION PMFSH Past Medical History Medical History Upper abdominal pain Social History Social History Patient Tobacco Use Status: Never used Tobacco Advance Directives: No Advance Directives Information Provided: No Do you have a plan to hurt others: No Plan Physical Exam ED Vital Signs: Vital Signs - 24 hr 12/24/24 19:27 12/24/24 20:43 12/24/24 21:57 Temperature 97.9 F 98.0 F 97.9 F Pulse Rate 82 66 68 Respiratory Rate 16 16 16 Blood Pressure 138/86 118/70 123/77 Pulse Oximetry 97 98 97 Oxygen Delivery Method Room Air Room Air Room Air 12/24/24 23:09 12/24/24 23:33 12/24/24 23:36 Temperature 98.2 F 98.2 F Pulse Rate 74 74 Respiratory Rate 15 15 20 Blood Pressure 127/66 127/66 Pulse Oximetry 96 96 Oxygen Delivery Method Room Air Room Air 12/24/24 23:36 Temperature Pulse Rate Respiratory Rate 20 Blood Pressure Pulse Oximetry Oxygen Delivery Method BMI result Body Mass Index 37.2 CONSTITUTIONAL: The patient appears in obvious discomfort but otherwise non-toxic, well nourished and in no acute distress. Vital signs as documented. HEAD: Atraumatic, normocephalic. EYES: EOMs grossly intact, pupils equal, conjunctiva clear, no exudate. ENT: Nares patent, no discharge. Airway patent, no audible stridor, visible mucosa is pink and moist without noted lesions. NECK: Trachea is midline, no obvious masses or gross abnormalities. CHEST: Symmetric movement, normal appearance. LUNGS: LS present and CTAB, no w/r/r. Non-labored work of breathing. CARDIAC: Regular Rhythm, S1/S2 appreciated, no murmurs, rubs or gallops. ABDOMEN: Abdomen soft x4 quadrants, positive tenderness to palpation of the right upper quadrant, negative rebound, negative Flores's, no palpable masses or organomegaly. : Deferred. EXTREMITIES: Normal tone, moves all extremities spontaneously without reported pain. No obvious acute injury or deformity noted. NEURO: Alert and oriented x3, CN II-XII appear grossly intact. Cerebellar Functioning grossly intact. No obvious sensory or motor deficits. Speech clear and appropriate. PSYCH: normal affect, appropriate eye contact, fluid speech, with appropriate response to questioning. No reported suicidality or homicidality. SKIN: Warm, dry, color appropriate, normal turgor. No rashes noted. Course Course Course Narrative: RME: 34 yold female with known gallstoens presents to the ED for RUQ pain. positive RUQ pain on palpation. labs US ordered. Medications Administered Discontinued Medications Generic Name Dose Route Start Last Admin Trade Name Freq PRN Reason Stop Dose Admin Sodium Chloride 1,000 mls @ 999 mls/hr 12/24/24 21:00 12/24/24 23:37 Ns IV 12/24/24 22:00 Infused .Q1H1M LAURIE Infusion Ketorolac Tromethamine 15 mg 12/24/24 20:53 12/24/24 21:05 Ketorolac Tromethamine 15 Mg/Ml Vial IVPUSH 12/24/24 20:54 15 mg ONCE ONE Administration Morphine Sulfate 4 mg 12/24/24 20:53 12/24/24 21:06 Morphine Sulfate 4 Mg/Ml Cartridge IVPUSH 12/24/24 20:54 4 mg ONCE ONE Administration Protocol Ondansetron HCl 4 mg 12/24/24 20:53 12/24/24 21:05 Ondansetron Hcl 4 Mg/2 Ml Vial IVPUSH 12/24/24 20:54 4 mg ONCE ONE Administration Medical Decision Making Medical Decision Making [facility] Narrative: 8:58 PM 12/24/2024 (Rekha MCKEON): The patient is a 34-year-old female who was diagnosed with gallstones on 12/13 at this facility, presenting to the ED for evaluation of recurrent postprandial pain which began today. Patient reports she was scheduled for follow-up with GI on 01/13 but returns due to the recurrence of pain. In the ED patient appears in obvious discomfort but in no acute distress, abdominal exam is positive for right upper quadrant tenderness without associated rebound or Flores's. The patient's laboratory evaluation thus far shows no leukocytosis or anemia, lipase is normal, CMP actually shows improvement in transaminitis and elevated bilirubin compared to 12/13, however patient reports severe pain began just prior to arrival in the ED. ultrasound shows gallstones without evidence of cholecystitis. Patient will be treated with IV fluid hydration, Toradol, morphine, and Zofran. Pending no improvement in symptoms patient's case will be discussed with GI for consideration of admission for MRCP/ERCP for symptomatic gallstones. 11:09 PM 12/24/2024 (Rekha MCKEON): The patient has experienced complete resolution of her pain following interventions in the ED. the patient reports feeling at baseline. The patient's laboratory evaluation has resulted and shows improvement in LFTs compared to previous visit. Plan for admission with GI consultation versus discharge with strict non-fat diet adherence and outpatient follow up with GI on the was discussed with the patient, at this time patient is requesting discharge for outpatient follow up with GI. Patient will be discharged with anti-inflammatories, information on low-fat diet, and instructed to follow up with GI on the . Admission/Observation Consideration of admission/observation: Escalation of care including admission/observation considered Lab Data [facility] Lab Attestation statement: I reviewed the patient's lab results. 12/24/24 20:21 12/24/24 20:21 Labs: Lab Results 12/24/24 Range/Units 20:21 WBC 7.8 (4.8-10.8) X10*3/uL RBC 4.51 (4.20-5.50) X10*6/uL Hgb 13.3 (12.0-16.0) g/dl Hct 39.0 (37.0-47.0) % MCV 86.5 (80.0-98.0) fL MCH 29.5 (27.0-33.0) pg MCHC 34.1 (31.0-35.0) g/dl RDW 13.2 (11.0-16.0) % Plt Count 288 (160-400) X10*3/uL MPV 10.8 (9.4-12.3) fL Immature Gran % (Auto) 0.4 (0.0-0.4) % Neut % (Auto) 67.3 (45-73) % Lymph % (Auto) 22.5 (20-40) % [place] % (Auto) 7.3 (2-11) % Eos % (Auto) 2.0 (0-4) % Baso % (Auto) 0.5 (0-2) % Lymph # (Auto) 1.8 (1.2-4.9) X10*3/uL [place] # (Auto) 0.6 (0.1-1.2) X10*3/uL Eos # (Auto) 0.2 (0.0-0.4) X10*3/uL Baso # (Auto) 0.0 (0.0-0.2) X10*3/uL Abs Immat Gran (auto) 0.03 (0.00-0.03) X10*3/uL Absolute Neuts (auto) 5.3 (2.0-8.3) x10*3/uL Absolute Nucleated RBC 0.000 (0.0-0.012) X10*3/uL Nucleated RBC % (auto) 0.0 (0.0-0.2) /100WBC Sodium 141 (135-145) mmol/L Potassium 4.0 (3.3-5.1) mmol/L Chloride 108 (96-108) mmol/L Carbon Dioxide 24 (22-29) mmol/L Anion Gap 13 (12-20) BUN 9 (9-16) mg/dL Creatinine 0.64 (0.5-1.4) mg/dL Estim Creat Clear Calc 132.2 Estimated GFR > 60 Random Glucose 105 (60-115) mg/dL Calcium 9.4 D (8.4-10.2) mg/dL Total Bilirubin 1.2 H (0.0-1.0) mg/dL AST 137 H (5-31) U/L ALT 89 H (0-31) U/L Alkaline Phosphatase 207 H (39-117) U/L Total Protein 7.3 (6.5-8.0) g/dL Albumin 4.3 (3.5-5.0) g/dL Lipase 25 (8-78) U/L Beta HCG, Quant < 2 mIU/mL Radiology Impression Discussion of test interpretation with radiology: I have reviewed the radiologist's reading. Radiologist Impression: CLINICAL HISTORY: Known gallstones. Cholecystitis? US Abdomen Limited, Right Upper Quadrant COMPARISON: Portions of CT/SR - CT ABDOMEN PELVIS WO IV CON - 12/13/24 06:44 EDT US - US ABDOMEN LIMITED - 12/13/24 02:32 EDT FINDINGS: Echogenic, shadowing calculi in the gallbladder. No gallbladder wall thickening. No pericholecystic fluid. Negative sonographic Flores sign. No bile duct dilation. Common bile duct measures 4 mm in diameter. IMPRESSION: Cholelithiasis without evidence of acute cholecystitis. This document has been electronically signed by: Felipe Tristan MD on 12/24/2024 20:43:11 External Record Review External record reviewed: Outpatient record Discharge Plan Discharge Clinical Impression: Gall stones Patient Disposition: Home, Self-Care Instructions: Gallstones (ED), Low Fat Diet (ED) Additional Instructions: Thank you for choosing [facility]'s Emergency Department for your care today. Your pain today was likely related to your known gallstones. Your pain was likely exacerbated by your recent consumption of a high fat content meal for dinner. Thankfully your pain improved following interventions in the ED, and your laboratory evaluation shows improvement in your liver function tests compared to your previous visit. Your laboratory evaluation and ultrasound shows no evidence of an obstructed common bile duct or infection of your gallbladder. As such there is no indication for admission to the hospital or continued ED observation, and it is safe to discharge you home. It is extremely important that you avoid high fat foods, please read the attached information regarding foods to avoid. It is also extremely important that you follow up with the GI physician on January 13 as scheduled to discuss additional management of your gallstones. You may take alternating (staggered) doses of ibuprofen 600mg and Tylenol 1000mg every 4 hours as needed for any additional pain. Please stay well hydrated and get plenty of rest. Please also follow up with your primary care physician for re-evaluation, additional management of your symptoms, and continued preventative care. If you do not have a primary care physician, please call the [facility] at [phone] to establish a new primary care physician. While waiting to establish your new primary care physician, you can call our Walk[facility]in [facility] at [phone] for non-emergency needs. Please return to the emergency department if you develop a severe or sudden change in your symptoms, a fever over 100.4 that does not improve with Tylenol or Ibuprofen, recurrent vomiting, or any other new or worsening symptoms or concerns. Prescriptions: New ibuprofen 600 mg tablet 600 mg PO Q8H PRN (Reason: fever or pain) Qty: 30 0RF acetaminophen 500 mg capsule 1,000 mg PO .q8 PRN (Reason: fever or pain) Qty: 30 0RF Referrals: Paul Lucas MD [Physician, General Surgery] Clinical Impression: Gall stones Evelyne Miller MD [Primary Care Provider, Internal Medicine] Interventions: ED Discharge Assessment Last Done: 12/24/24 23:33 Discharge Date/Time: 12/24/24 23:36 Print Language: Cuban
[2024-12-24 20:28] LABS: MANUAL DIFF FLAG NO
[2024-12-24 20:29] LABS: Hematocrit 39.0 % (37.0-47.0); Hemoglobin 13.3 g/dl (12.0-16.0); Imm Gran Abs Auto 0.03 X10*3/uL (0.00-0.03); Imm Gran Pct Auto 0.4 % (0.0-0.4); Lymphocytes Absolute Auto 1.8 X10*3/uL (1.2-4.9); Mean Corpuscular HGB Conc 34.1 g/dl (31.0-35.0); Mean Corpuscular Hemoglobin 29.5 pg (27.0-33.0); Mean Corpuscular Volume 86.5 fL (80.0-98.0); NRBC Abs Auto 0.000 X10*3/uL (0.0-0.012); NRBC Pct Auto 0.0 /100WBC (0.0-0.2); Platelet Count 288 X10*3/uL (160-400); Red Blood Count 4.51 X10*6/uL (4.20-5.50); White Blood Count 7.8 X10*3/uL (4.8-10.8)
[2024-12-24 20:43] VITALS: BP 118/70; PULSE 66; RESP 16; TEMP 36.7; O2SAT 98
--- NOTE | 2024-12-24 20:46 | MHC.EDTECH ---
This pct assumed care of Patient at 2044 ,vitals taken ,Patient stated she is in alot of Pain ,RN Tracee aware ,Patient aware we need a urine sample .
[2024-12-24 20:51] LABS: Alanine Aminotransferase 89 U/L (0-31); Albumin Level 4.3 g/dL (3.5-5.0); Alkaline Phosphatase 207 U/L (39-117); Anion Gap 13 (12-20); Aspartate Amino Transferase 137 U/L (5-31); Blood Urea Nitrogen 9 mg/dL (9-16); Calcium 9.4 mg/dL (8.4-10.2); Carbon Dioxide 24 mmol/L (22-29); Chloride 108 mmol/L (96-108); Creatinine Clr Calc Pharmacy 132.2; Estimated Glomerular Filt Rate > 60; Lipase 25 U/L (8-78); Potassium 4.0 mmol/L (3.3-5.1); Sodium 141 mmol/L (135-145); Total Protein 7.3 g/dL (6.5-8.0)
[2024-12-24 21:57] VITALS: BP 123/77; PULSE 68; RESP 16; TEMP 36.6; O2SAT 97
[2024-12-24 23:09] VITALS: BP 127/66; PULSE 74; RESP 15; TEMP 36.8; O2SAT 96
--- NOTE | 2024-12-24 23:32 | PC.NURSE ---
This RN assumed pt care @ 2300. Pt a&0x4, no signs of distress. Pt denies pain at this time Plan of care ongoing.
[2024-12-24 23:33] VITALS: BP 127/66; PULSE 74; RESP 15; TEMP 36.8; O2SAT 96
[2024-12-24 23:36] VITALS: RESP 20
== END 2024-12-24 23:36 | disposition home or self-care (01) ==
PROVIDERS: Physician Assistant; Emergency Provider Emergency Medicine; PCP Internal Medicine
DX: K80.20 Calculus of gallbladder without cholecystitis without obstruction (principal); R10.811 Right upper quadrant abdominal tenderness; R10.11 Right upper quadrant pain; R10.2 Pelvic and perineal pain; R11.0 Nausea
CPT/HCPCS: 36415; 76705; 80053; 83690; 84702; 85025; 96361; 96374; 96375; 99284; 99285; J1885; J2270; J2405

== ENCOUNTER → 2024-12-24 19:29 | Outpatient (BNV) | payer OTHER, SELFPAY | PROVIDERS: Emergency Provider Emergency Medicine; PCP Internal Medicine; Visit Provider Radiology Diagnostic Radiology | DX: K80.20 Calculus of gallbladder without cholecystitis without obstruction (principal) | CPT/HCPCS: 76705 ==

== ENCOUNTER 2025-01-13 14:37 | Outpatient (AMB) | payer OTHER, SELFPAY ==
--- NOTE | 2025-01-13 14:38 | MHC.OFFVIS ---
Vital Signs 01/13/25 14:44 Height 5 ft 2 in Weight 195 lb BMI 35.7 BP 153/75 H Blood Pressure Location Rt brachial Position Sitting Pulse 71 Intake Visit Reasons: possicble cholecystectomy Intake Note: Patient referred after [facility] [place] for possible Cholecystectomy. Patient c/o: RUQ stabbing pain. Denies nausea, diarrhea, constipation. Abdomen US: 12-24-2024 Plate Shop Helper Required: No Accompanied by: Self / Same As Patient Allergies SEASONAL ALLERGIES Allergy (Unknown, Uncoded 12/24/24 19:30) ITCHY, NASAL CONGESTION Medication List - Last Reconciled 01/13/25 by Paul Lucas MD acetaminophen 1,000 mg (2 x 500 mg) PO .q8 PRN ibuprofen 600 mg PO Q8H PRN HPI HPI possicble cholecystectomy: Details: [age] year old female referred for gallstones. She had been recently and delivered about 2 months ago. Since delivery of her baby, she says she has had periodic right upper quadrant pain. She actually had been to the ER twice since that time and had both a CAT scan and ultrasound. Her ultrasound showed gallstones She continues to have periodic right upper quadrant pain so she was referred to me. She denies any other complaints. [facility] Medical History Upper abdominal pain Social History Patient Tobacco Use Status: Never used Tobacco Review of Systems Const Denies chills and Denies fever(s) Card Denies chest pain, Denies dyspnea and Denies dyspnea on exertion Resp Denies cough, Denies dyspnea and Denies dyspnea on exertion GI Denies hematochezia and Denies change in bowel habits Denies hematuria Musc Denies back pain and Denies limited range of motion Neuro Denies focal weakness and Denies convulsions Psych Denies depression and Denies mood swings Physical Exam Vital Signs: Last Vital Signs Pulse 71 01/13/25 14:44 BP 153/75 H 01/13/25 14:44 BMI result Body Mass Index 35.7 Const General: comfortable and no acute distress Orientation/consciousness: patient oriented x3 Neck Neck: Yes no lymphadenopathy Resp Auscultation: clear to auscultation bilaterally Cardio Rhythm: regular rhythm GI Palpation (GI): Soft to palpation, nontender and no guarding Neuro General: patient oriented x3 Assessment & Plan Assessment & Plan (1) Gall stones: Code(s): K80.20 - Calculus of gallbladder without cholecystitis without obstruction Category: Medical Plan: She has had periodic right upper quadrant pain for over 2 months now. Imaging studies show gallstones In view of her symptomatic gallstones, I explained to her the option of proceeding with a cholecystectomy. I explained the technique of laparoscopic cholecystectomy and possible open cholecystectomy. I reviewed the risks including but not limited to bleeding, infections, injury to other organs including bowel, liver and bile ducts, retained stones, bile leak, as well as the benefits and alternatives. I explained to her what to expect postoperatively. She understands and wants to proceed. She also has a high BMI so I explained to her the benefits of weight loss prior to the procedure. Coding Level of Care Code New Pt Level 3 (81414) Diagnoses Gall stones K80.20
[2025-01-13 14:44] VITALS: BP 153/75; PULSE 71; BMI 35.7
--- OUTSIDE RECORDS SUMMARY | 2025-01-13 15:08 | XMS_ITS | Clinical Summary ---
Author Organization [facility] Address [address] [address] Phone Care Team Providers Care Manufactured Buildings Supervisor Name Role Phone Pcp, Unknown Primary Care Provider Unavailabl e Allergies No known active allergies Medications amoxicillin (AMOXIL) 500 MG capsule Take 1 capsule (500 mg total) by mouth 2 (two) times a day. 19 capsule Active Additional Information Patient not taking.Reported on 08/08/2024 aspirin 81 MG EC tablet Take 162 mg by mouth daily. 4 05/08/20 25 Active ferrous gluconate 324 mg (38 mg elemental) tablet Take 324 mg by mouth every other day. 5 08/07/19 26 Active Social History Tobacco Use Types Packs/Day Years Used Date Smoking Tobacco: Never Assessed Education Answer Date Recorded Are you interested in more education? Not on radha e 06/09/2024 Are you concerned about learning? Not on file 06/09/2024 No 06/09/2024 No 06/09/2024 Digital Access Answer Date Recorded No 06/09/2024 No 06/09/2024 Reliable internet access at home? Not on file 06/09/2024 Device with a working camera? Not on file Intimate Partner Violence Answer Date R ecorded Are you denied basic needs s uch as food, clothing, or medical care? No 08/08/2024 In the past 12 months have y ou been in a relationship with a person who hurts, threatens, or tries to control you? No 08/08/2024 Are you denied basic needs s uch as food, clothing, or medical care? No 08/08/2024 In the past 12 months have y ou been in a relationship with a person who hurts, threatens, or tries to control you? No 08/08/2024 Estimated Date of Delivery Comme nts Yes 11/09/2024 Sex and Gender Information Value Date Recorded Sex Assigned at Female 06/09/2024 11:58 AM EST Legal Sex Female 11:48 AM EST Gender Identity Female 06/09/2024 11:58 AM EST Sexual Orientation Straight 06/09/2024 11 :58 AM EST Last Filed Vital Signs Vital Sign Reading Time Taken Comments Blood Pressure 109/62 08/08/2024 9:15 PM EST Pulse 96 08/08/2024 9:15 PM EST Temperature 37.1 C (98.7 F) 08/08/2024 9:15 PM EST Respiratory Rate 18 08/08/2024 9:15 PM EST Oxygen Saturation 100% 08/08/2024 9:15 PM EST Inhaled Oxygen Concentration - - Weight 100.2 kg (221 lb) 08/08/2024 4:40 PM EST Height 157.5 cm (5' 2 ) 08/08/2024 4:40 PM EST Body Mass Index 40.42 08/08/2024 4:40 PM EST Plan of Treatment Health Maintenance Due Date Last Done Comments Adult Td,Tdap Booster 1991 DEPRESSION SCREENING 2003 SMOKING Hx and SMOKELESS TOB ACCO SCREENING 2004 HEPATITIS C SCREENING 2009 HIV ONE-TIME SCREENING (18-6 5 YEARS) 2009 PAP SMEAR 2012 COVID-19 VACCINE (2023-2 5 season) 2024 HEPATITIS A VACCINES Aged Out No long er eligible based on patient's age to complete this topic HIB VACCINES Aged Out No longer eligi ble based on patient's age to complete this topic MENINGOCOCCAL VACCINES (ACWY) Aged Out No longer eligible based on patient's age to complete this topic MENINGOCOCCAL VACCINES (B) Aged Out N o longer eligible based on patient's age to complete this topic PNEUMOCOCCAL VACCINES (0-49 years) Aged Out No longer eligible based on patient's age to complete this topic RSV VACCINE (No Doses Required) Completed Medical Devices Not on file Insurance [employer] Care Teams Manufactured Buildings Supervisor Relationship Specialty Start Date End Date Pcp, Unknown PCP - General 08/08/24 Additional Source Comments The information contained in this document represents components of the legal health record. It is not the complete legal health record.[facility]
--- OUTSIDE RECORDS SUMMARY | 2025-01-13 15:08 | XMS_ITS | Clinical Summary ---
Author Organization [facility] [address] [place] [address] [place] [phone] Phone Care Team Providers Care Cut Tobacco Bulker Name Role Phone Teresa Winters MD Primary Care Provider Allergies No known active allergies Medications glycerin-witch Jason 12.5-50 % pads Apply 1 each topically if needed for irritation. 5 Active Active Problems Problem Noted Date Diagnosed Date Elevated blood pressure reading 11/09/2024 Overview (11/09/2024): 11/05- 124/91, normal on repeat and normal the next day H/O gestational diabetes in prior , currently 11/05/2024 Grief 09/17/2024 Overview (12/22/2024): 09/17- pt reports her from unexpected illness on 09/12/2024- she has good family support. Having some anxiety and difficulty sleeping. Offered BHN list and Vistaril Rx sent. PP visit- EPDS- 12- declines meds at this time, accepts BHN list. Has good family support, denies SI/HI. Rh negative state in antepartum period Overview (09/03/2024): Rhogam at 28 weeks Antibody neg, will check panorama results and if Baby is pos will order Rhogam Rhogam received- 08/17/2024 Family history of pulmonary valve stenosis 06/25 Overview (07/15/2024): 06/25/2024- Normal FAS, Will need echo in 4 weeks for fam hx 07/15- echo structurally normal Maternal varicella, non-immune 10/01/2017 Overview (11/09/2024): Need PP vaccine Resolved Problems Problem Noted Date Diagnosed Date Resolved Date care following vaginal delivery 11/09/2024 12/22/2024 Elevated blood pressure affe cting in third trimester, antepartum 11/05/2024 Non-reactive NST (non-stress test) 11/05/2024 12/22/2024 Abnormal finding on ultrasound 09/17/2024 12/22/2024 Overview (10/02/2024): 09/17/2024- There appears to be multiple small connecting cysts within the kidneys. There is no ureter or pelvic dilatation seen. There is a nomal bladder and stomach seen. Repeat in 2 weeks 10/02/2024- kidneys appear unremarkable. There is no ureter or pelvic dilatation seen. There is a nomal bladder and stomach seen. Renal arteries seen. Follow up as clinically indicated. Anemia during 09/03/2024 07/0 06/2024 Overview (09/03/2024): Taking iron care, subsequent pr egnancy in third trimester 08/07/2024 12/22/2024 Overview (10/18/2024): 1. [facility] site: [facility]: [address] [place] [address] ([phone]) 2. Delivery site: [facility] 3. Mobile Mommas: No 4. Dating criteria: LMP 5. Blood type: A- 6. 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 There are no markers of aneuploidy. MSAFP: NA- did too late 6. GBS: Negative Date: 10/14 7. FOB name: Valdez 8. Plans A. Epidural or other pain management - B. Labor support identified - Mom, Mother in Law and FOB's Sister- FOB 08/2024- unexpectedly- she would like to have these 3 people in the room for support- please accommodate due to situation C. Tdap - Date: 09/03/2024 Flu - Date: D. Breast or Bottle feed: Bottle E. Baby's name - Remedios Kennedy F. Circumcision - NA 9. Hospital Course: test positive 07/10/202407/25 Overview (07/10/2024): 1. [facility] site: [address] 2. Delivery site: [facility] 3. Mobile Mommas: no 4. Dating criteria: LMP confirmed by 1st trimester ultrasound 5. Blood type: A- 6. Genetic screening: Date: Result: 6. GBS: Date: 7. FOB name: Valdez 8. Plans A. Epidural or other pain management - B. Labor support identified - C. Tdap - Date:, Flu - Date: D. Breast or Bottle feed: E. Baby's name - F. Circumcision - 9. Hospital Course: Elevated glucose tolerance test 04/21/2024 12/22/2024 Overview (11/09/2024): Elevated 1hr, Normal 3hr GTT 28 weeks- Normal 3hr GTT Elevated early GTT- 3hr ordered Morbid obesity ([facility] V24, [facility] V28) 11/10/2015 12/22/2024 Overview (11/09/2024): BMI- 41.8 HgbA1C and 1 hour GTT at initial labs- Elevated, passed 3hr ASA 162mg at 12 weeks until delivery- taking Detailed anatomy ultrasound- WNL Repeat GTT 24-28 weeks if early is normal-3hr WNL Pre-preg BMI >40: NST weekly at 34 weeks Growth US at 32 and 36 weeks for BMI >40 09/17- Growth 31%tile, normal fluid BMI of 50 by 28wks transfer to [facility] DVT prophylaxis- Lovenox if CS and BMI >35 HgbA1C and 1 hour GTT at initial labs ASA 162mg at 12 weeks until delivery Detailed anatomy ultrasound Repeat GTT 24-28 weeks if early is normal Pre-preg BMI 35-39.9: NST weekly at 37 weeks Pre-preg BMI >40: NST weekly at 34 weeks Pre-preg BMI >45: NST weekly at 32 weeks Growth US at 32 and 36 weeks for BMI >40 BMI of 50 by 28wks transfer to [facility] DVT prophylaxis- Lovenox if CS and BMI >35 Encounters Date Type Department Care Team Description 12/22/2024 1:00 PM EDT Routine Obstetrics and Gynecology - [address] [phone] Nancie Lenz CNM state (Primary Dx); Grief; Depression screening 11/15/2024 [facility] [address] [place] [phone] Claudia Arteaga CNM 11/10/2024 8:49 AM EDT Anesthesia Event [facility] - [address] [phone] Jeffery Eng DO 11/09/2024 7:52 PM EDT - 11/11/2024 7:04 PM EDT Hospital Encounter [facility] - [address] [phone] Binh Thomas MD Discharge Disposition: Home or Self Care 11/09/2024 10:30 AM EDT Ancillary Procedure Maternal Medicine - [address] [phone] care, subsequent in third trimester; Family history of pulmonary valve stenosis; Elevated glucose tolerance test; Anemia during ; Rh negative state in antepartum period; 39 weeks gestation of ; Elevated blood pressure affecting in third trimester, antepartum; Non-reactive NST (non-stress test); Obesity in 11/09/2024 9:15 AM EDT Routine Obstetrics and Gynecology - [address] [phone] Nancie Lenz CNM care, subsequent in third trimester (Primary Dx); 40 weeks gestation of ; Obesity in ; Anemia during ; Non-reactive NST (non-stress test) 11/06/2024 9:30 AM EDT Routine Obstetrics and Gynecology - [address] [phone] Blood pressure check (Primary Dx) 11/05/2024 2:29 PM EDT - 11/05/2024 3:56 PM EDT [facility] - [address] [phone] Binh Thomas MD Discharge Disposition: Home or Self Care 11/05/2024 1:15 PM EDT Routine Obstetrics and Gynecology - [address] [phone] Tana Dior CNM care, subsequent in third trimester (Primary Dx); Family history of pulmonary valve stenosis; Elevated glucose tolerance test; Anemia during ; Rh negative state in antepartum period; 39 weeks gestation of ; Elevated blood pressure affecting in third trimester, antepartum; Non-reactive NST (non-stress test); Obesity in 10/29/2024 2:30 PM EDT Ancillary Procedure Maternal Medicine - [address] [phone] Obesity in 10/29/2024 1:15 PM EDT Routine Obstetrics and Gynecology - [address] [phone] Nancie Lenz CNM care, subsequent in third trimester (Primary Dx); Obesity in ; 38 weeks gestation of ; Anemia during 10/22/2024 11:30 AM EDT Routine Obstetrics and Gynecology - [address] [phone] Nancie Lenz CNM care, subsequent in third trimester (Primary Dx); NST (non-stress test) reactive; Obesity in 10/14/2024 3:00 PM EDT Ancillary Procedure Maternal Medicine - [address] [phone] care, subsequent in third trimester; Obesity in 10/14/2024 10:30 AM EDT Routine Obstetrics and Gynecology - [address] [phone] Nancie Lenz CNM care, subsequent in third trimester (Primary Dx); Obesity in ; NST (non-stress test) reactive; Positive GBS test; Sensation of pelvic pressure during ; 36 weeks gestation of from Last 3 Months Immunizations Name Administration Dates Next Due DTP 10/06/1996, 3,1991,1991,1991 ZExZ-ZIG-[id number] (Pentacel) 2mo to less than 5yo 07/25/1992,1991,1991,1990 HPV, Quadrivalent 10/21/2007 Hepatitis B (Jpmeqib-J-Tktur , Recombivax HB-Adult) 19yo and older 07/17/2013 Hepatitis B Pediatric (Enger ix B; Recombivax HB) to less than 20 yo 05/13/1997,10/29/1996,10/06/1996 Influenza Quadravalent, MDCK , 0.5ml, preservative free (Flucelvax) 6mo and older 03/24/2018 MMR, measles mumps and rubel la Live (Priorix; M-M-R II) 12mo and older 10/06/1996,07/25/1992 OPV 10/06/1996, 3,1991,1991 PPD Test 11/10/2013 Td Tetanus diptheria (Tdvax) 7yo and older 07/27/2003 Tdap Tetanus diptheria acell ular pertussis (Boostrix; Adacel) 7yo and older 09/03/2024,01/31/2018,05/27/2013,2007 Varicella live (Varivax) 12m o and older 07/17/2013,12/17/2000 Surgical History Surgery Date Site/Laterality Comments OTHER SURGICAL HISTORY PROCEDURE: DENIES PREVIOUS SURGERY Medical History Medical History Date Comments High-risk in third trimester 03/17/2018 DX:High-risk in third trimester Family History Medical History Relation Name Comments Other: muscular dystrophy Brother No Known Problems Father No Known Problems Maternal Grandfather No Known Problems Maternal Grandmother Hypertension Mother asthma; depress ion Diabetes Paternal Grandfather Asthma Paternal Grandmother Breast cancer Neg Hx Cervical cancer Neg Hx Ovarian cancer Neg Hx Uterine cancer Neg Hx Relation Name Status Comments Brother Alive healthy Father Alive healthy Maternal Grandfather unk Maternal Grandmother unk Mother Alive HTN, anxiety Paternal Grandfather unk Paternal Grandmother Alive unk Social History Tobacco Use Types Packs/Day Years Used Date Smoking Tobacco: Never Smokeless Tobacco: Never Alcohol Use Standard Drinks/Week Comments Not Currently 0 (1 standard drink = 0.6 oz pur e alcohol) Housing Instability Answer Date Recorde d Are you worried that in the next 2 months you may not have stable housing? No 11/11/2024 Food Access & Nutrition Answer Date Rec orded Do you have access to a vari ety of food including fruits and vegetables? Yes 11/11/2024 Access to Healthcare Answer Date Record ed Within the last 3 months, ho w many times did you visit the emergency department for your medical care? 2 11/11/2024 Health Literacy Answer Date Recorded How often do you need to hav e someone help you when you read instructions, pamphlets, or other written material from your doctor or pharmacy? Never 11/09/2024 Caregiver: How often do you need to have someone help you when you read instructions, pamphlets, or other written material from your doctor or pharmacy? Not on file 11/09/2024 Financial Risk Answer Date Recorded How hard is it for you to pa y for the very basics like food, housing, medical care, and air conditioning / heating? Not very hard 11/11/2024 Transportation Answer Date Recorded Has the lack of transportati on kept you from meetings, work, or from getting things needed for daily living? No Has the lack of transportati on kept you from medical appointments or from getting medications? No 11/11/2024 Social Isolation Answer Date Recorded How often do you feel lonely or isolated from th ose around you? Never 11/11/2024 Food Risk Answer Date Recorded Within the past 12 months we worried whether our food would run out before we got money to buy more. Never true 11/11/2024 Within the past 12 months th e food we bought just didn't last and we didn't have money to get more. Never true 11/11/2024 Dependent Care Answer Date Recorded Do you need help finding or paying for care for your loved ones. For example, children's tutor or elderly care for an older adult? No 11/09/2024 Education Answer Date Recorded Do you think completing more education or training, like finishing a GED, going to college, or learning a trade, would be helpful for you? Yes 11/09/2024 Employment and Income Answer Date Recor ded During the last four weeks, have you been actively looking for work? No 11/09/2024 Living Situation Answer Date Recorded What is your living situation? 0 11/09/2024 Interpersonal Safety Answer Date Record ed Physical Abuse 11/11/2024 Verbal Abuse 11/11/2024 Comments No Sex and Gender Information Value Date Recorded Sex Assigned at Female 11/11/2024 10:20 AM EDT Legal Sex Female 12:41 AM EST Gender Identity Female 11/11/2024 10:20 AM EDT Sexual Orientation Straight 11/11/2024 10 :20 AM EDT Obstetrics History Para Term AB IAB SAB Ectopic Multiple Livin g Live Births 2 2 2 0 0 0 2 2 Date Outcome GA Total Labor Labor/2nd/3rd Weight Sex Type Anes PTL Yifan A1 A5 Name Clin 2017 Term 40w 0d 3629 g (128 oz) F Vag-S pont Livin g 8 9 miriam disla er Delivery Location:[facility] 2024 Term 40w 1d 0h 21m 0h 18m/0h 03m 3610 g (127.3 oz) F Vag-S pont Epidur al N Livin g 8 9 Remedios Heredi a Juliana Rudolph as, DO Complications:None Delivery Location:[facility]) Summary Episode Dates Number of Fetuses Estimated Date of Delivery 05/08/2024 - Present (01/13/2025) 1 11/09/2024 (set by Joanie Brock MA on 05/08/2024 based on Last Menstrual Period on 02/03/2024) Dating Summary Based On DUSTY GA Diff Last Menstrual Period on 02/03/2024 11/09/2024 Working Overview and Plan :Patten sex:Female Delivery Plans Planned delivery method:Vaginal Vitals Pregravid Weight Height TWG (As of 01/13/2025) Pregrav id BMI 104 kg (229 lb) 1.575 m (62 ) -0.272 kg (-9.6 oz) 41.8 7 Date GA Fund Present FHR Mvmt BP Weight Edema Alb Glu Ket Dil/ Eff/Sta 11/06/19 25 39w3d 124/9 1 102 kg 0/0/-5 11/06/19 25 39w3d Inpatient data not displayed here. See encounter summary. 11/10/19 25 40w0d 110/8 1 104 kg 1/40/-3 11/10/19 25 40w1d Inpatient data not displayed here. See encounter summary. Notes Progress Notes - Routine Pre brian - 12/22/2024 - GA:40w1d 12/22/2024 - 40w1d - Nancie Lenz, HARVINDER Visit Encounter Date: 12/22/2024 Chief Complaint: Chief Complaint Patient presents with Follow-up Subjective: Mary Gupta is a 34 y.o. who presents for visit. She is 6 weeks s/p vaginal delivery. She is Formula feeding without difficulty. Lochia stopped. Has not yet had intercourse or menses. Mood is good, EPDS 12, feels its situational due to her husbands recent passing- declines meds- accepts BHN list. Has good family support. Denies SI/HI. Desires none for contraception. Her in August- plans abstinence for now and condoms in the future. was complicated by Obesity, anemia, elevated GTT- normal 3hr, RH neg. Review of Systems: As in HPI. All other systems reviewed and negative. Patient Active Problem List Diagnosis Family history of pulmonary valve stenosis Rh negative state in antepartum period Grief Maternal varicella, non-immune H/O gestational diabetes in prior , currently Elevated blood pressure reading OB History Para Term AB Living 2 2 2 0 0 2 SAB IAB Ectopic Multiple Live Births 0 2 # Outcome Date GA Lbr Jos/2nd Weight Sex Type Anes PTL Lv 2 Term 11/10/24 40w1d / 00:18 3610 g (127.3 oz) F Vag-Spont EPI N YIFAN 1 Term 04/19/18 40w0d 3629 g (128 oz) F Vag-Spont YIFAN Past Medical History: Diagnosis Date High-risk in third trimester 03/17/2018 DX:High-risk in third trimester Social History Socioeconomic History Marital status: Single Spouse name: Not on file Number of children: Not on file Years of education: 12 Highest education level: Not on file Occupational History Not on file Tobacco Use Smoking status: Never Smokeless tobacco: Never Substance and Sexual Activity Alcohol use: Not Currently Drug use: No Sexual activity: Yes Partners: Male Comment: FOB Other Topics Concern Not on file Social History Narrative Lives w/ parents; sometimes w/ BF 4/6 pt here for ob work up Planned :YES Lives with: sister, sisters dk, her niece (fob is a truck repair service estimator and stays with them when he is not traveling for work) Other Children: this is first for pt and fob, he has no other children Support system in place:YES Pets:YES 1 dog Occupation: employed, 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 Authorizing Provider glycerin-witch Jason 12.5-50 % pads Apply 1 each topically if needed for irritation. 11/11/24 Shanika Lopez CNM No Known Allergies Objective: Vitals: 12/22/24 1255 BP: 134/84 Weight: 91.2 kg (201 lb) Gen: Alert, cooperative. Well-appearing on today's exam Cardiovascular: regular rate and rhythm, no m/r/g Lung: clear to auscultation bilaterally, no wheezing, ronchi, normal respiratory effort Breast: Normal appearance, no masses or tenderness, no nipple retraction or dimpling bilaterally. No axillary or supraclavicular adenopathy Abdomen: No scars. Soft, non-tender. No masses palpable, no organomegaly. Lymph: No inguinal lymphadenopathy. Extremities: no calf tenderness or edema, atraumatic without deformity Skin: Skin color, texture, turgor normal. No rashes or lesions Psych: Mood and affect appropriate. Pelvic: External Genitalia: Normal appearance, without lesions Vagina: Normal appearance. Mucosa is pink, normal rugae, no abnormal discharge. No lesions. Cervix: Normal appearance, without discharge or lesions. Uterus: Normal size and shape. Non-tender Adnexa: No adnexal masses, tenderness bilaterally. Assessment/Plan: 34 y.o. with: 1. Contraception- Abstinence and condoms in the future 2. Discussed nutrition, exercise, sexual activity, control methods, eligibility worker care, S&S of PPD and BHN list given, meds discussed- declines at this time. 3. AE in one year Stilwell Depression Scale: In the Past 7 Days I have been able to laugh and see the funny side of things.: As much as I always could I have looked forward with enjoyment to things.: As much as I ever did I have blamed myself unnecessarily when things went wrong.: Yes, some of the time I have been anxious or worried for no good reason.: No, not at all I have felt scared or panicky for no good reason.: No, not at all Things have been getting on top of me.: Yes, sometimes I haven't been coping as well as usual I have been so unhappy that I have had difficulty sleeping.: Yes, sometimes I have felt sad or miserable.: Yes, most of the time I have been so unhappy that I have been crying.: Yes, most of the time The thought of harming myself has occurred to me.: Never Stilwell Depression Scale Total: 12 Nancie Lenz CNM on 12/22/2024 at 1:27 PM EDT Nancie Lenz CNM Progress Notes - Hospital En counter - 11/11/2024 - GA:40w1d 11/10/2024 - 40w1d - Binh Yanez MD OB Progress Note Subjective Present to IOL at term Objective Patient Active Problem List Diagnosis Date Noted Date Diagnosed Encounter for induction of labor 11/09/2024 Elevated blood pressure reading 11/09/202411/05- 124/91, normal on repeat and normal the next day Elevated blood pressure affecting in third trimester, antepartum 11/05/2024 H/O gestational diabetes in prior , currently 11/05/2024 Non-reactive NST (non-stress test) 11/05/2024 Grief 09/17/202409/17- pt reports her from unexpected illness on 09/12/2024- she has good family support. Having some anxiety and difficulty sleeping. Offered BHN list and Vistaril Rx sent. Abnormal finding on ultrasound 09/17/2024 09/17/2024- There appears to be multiple small connecting cysts within the kidneys. There is no ureter or pelvic dilatation seen. There is a nomal bladder and stomach seen. Repeat in 2 weeks 10/02/2024- kidneys appear unremarkable. There is no ureter or pelvic dilatation seen. There is a nomal bladder and stomach seen. Renal arteries seen. Follow up as clinically indicated. Anemia during 09/03/2024 Taking iron care, subsequent in third trimester 08/07/2024 1. [facility] site: [facility]: [address] [place] [address] ([phone]) 2. Delivery site: [facility] 3. Mobile Mommas: No 4. Dating criteria: LMP 5. Blood type: A- 6. 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 There are no markers of aneuploidy. MSAFP: NA- did too late 6. GBS: Negative Date: 10/14 7. FOB name: Valdez 8. Plans A. Epidural or other pain management - B. Labor support identified - Mom, Mother in Law and FOB's Sister- FOB 08/2024- unexpectedly- she would like to have these 3 people in the room for support- please accommodate due to situation C. Tdap - Date: 09/03/2024 Flu - Date: D. Breast or Bottle feed: Bottle E. Baby's name - Remedios Kennedy F. Circumcision - NA 9. Hospital Course: Rh negative state in antepartum period 07/10/2024 Rhogam at 28 weeks Antibody neg, will check panorama results and if Baby is pos will order Rhogam Rhogam received- 08/17/2024 Family history of pulmonary valve stenosis 06/25/2024 06/25/2024- Normal FAS, Will need echo in 4 weeks for fam hx 07/15- echo structurally normal Elevated glucose tolerance test 04/21/2024 Elevated 1hr, Normal 3hr GTT 28 weeks- Normal 3hr GTT Elevated early GTT- 3hr ordered Maternal varicella, non-immune 10/01/2017 Need PP vaccine Morbid obesity (CMS/HCC V24, CMS/HCC V28) 11/10/2015 BMI- 41.8 HgbA1C and 1 hour GTT at initial labs- Elevated, passed 3hr ASA 162mg at 12 weeks until delivery- taking Detailed anatomy ultrasound- WNL Repeat GTT 24-28 weeks if early is normal-3hr WNL Pre-preg BMI >40: NST weekly at 34 weeks Growth US at 32 and 36 weeks for BMI >40 09/17- Growth 31%tile, normal fluid BMI of 50 by 28wks transfer to [facility] DVT prophylaxis- Lovenox if CS and BMI >35 HgbA1C and 1 hour GTT at initial labs ASA 162mg at 12 weeks until delivery Detailed anatomy ultrasound Repeat GTT 24-28 weeks if early is normal Pre-preg BMI 35-39.9: NST weekly at 37 weeks Pre-preg BMI >40: NST weekly at 34 weeks Pre-preg BMI >45: NST weekly at 32 weeks Growth US at 32 and 36 weeks for BMI >40 BMI of 50 by 28wks transfer to [facility] DVT prophylaxis- Lovenox if CS and BMI >35 Resolved Problems Diagnosis Date Diagnosed test positive 1. [facility] site: [place] [address]. Delivery site: [facility] 3. Mobile Mommas: no 4. Dating criteria: LMP confirmed by 1st trimester ultrasound 5. Blood type: A- 6. Genetic screening: Date: Result: 6. GBS: Date: 7. FOB name: Valdez 8. Plans A. Epidural or other pain management - B. Labor support identified - C. Tdap - Date:, Flu - Date: D. Breast or Bottle feed: E. Baby's name - F. Circumcision - 9. Hospital Course: Current Medications: lactated Ringer's, 125 mL/hr oxytocin, 42-333 tomas-units/min miSOPROStoL, 800 mcg, sublingual, Once sodium chloride, 10 mL, intravenous, BID tranexamic acid, 1 g, intravenous, Once Last Recorded Vitals: Patient Vitals for the past 24 hrs: BP Temp Temp src Pulse SpO2 11/09/242049 -- -- -- 91 99 % 11/09/242044 -- -- -- 95 99 % 11/09/242039 -- -- -- 99 97 % 11/09/242034 -- -- -- 91 97 % 11/09/242029 -- -- -- 99 98 % 11/09/242024 -- -- -- 91 98 % 11/09/242019 -- -- -- 105 97 % 11/09/242015 117/72 -- -- 106 -- 11/09/242014 -- -- -- (!) 111 98 % 11/09/242013 -- 36.8 C (98.2 F) Temporal -- -- Input/Output: No intake/output data recorded. No intake or output data in the 24 hours ending 11/09/24 2205 OBGyn Exam Last Cervical Exam: 1 cm dilated, 60 (Simultaneous filing. User may not have seen previous data.) % effaced, -3 (Simultaneous filing. User may not have seen previous data.) station. The fetus is in a presentation and position. Heart Monitoring Info: Baseline 120's moderate variability, positive accelerations and no decelerations Lab Results: Recent Results (from the past 48 hours) CBC auto differential Collection Time: 05/19/25 9:40 PM Result Value Ref Range WBC 10.3 4.8 - 10.8 K/mcL RBC 3.50 (L) 3.80 - 4.80 M/mcL Hemoglobin 10.6 (L) 11.5 - 16.0 g/dL Hematocrit 31.7 (L) 35.0 - 47.0 % MCV 89.5 79.0 - 98.0 FL MCH 29.9 27.0 - 32.0 pcg MCHC 33.4 32.0 - 37.0 g/dL RDW 14.0 11.0 - 15.0 % Platelets 269 130 - 400 K/mcL MPV 10.8 7.0 - 11.0 FL NRBC 0.0 <1.0 % NRBC Absolute 0.00 <0.10 K/mcL Neutrophils Relative 67.0 % Lymphocytes Relative 21.3 % Monocytes Relative 8.9 % Eosinophils Relative 1.3 % Basophils Relative 0.4 % Immature Granulocytes Relative 1.1 % Neutrophils Absolute 6.90 1.50 - 7.00 K/mcL Lymphocytes Absolute 2.19 1.00 - 5.00 K/mcL Monocytes Absolute 0.91 0.20 - 1.00 K/mcL Eosinophils Absolute 0.13 0.00 - 0.50 K/mcL Basophils Absolute 0.04 0.00 - 0.20 K/mcL Immature Granulocytes Absolute 0.11 (H) 0.00 - 0.03 K/mcL Imaging Results: US Biophysical Profile wo Non Stress Test Narrative: OBSTETRICS REPORT (Signed Final 11/09/2024 11:31 am) PATIENT INFO: ID #: [id number] : [birth year] (34 yrs)(F) Name: MARY GUPTA Visit Date: 11/09/2024 10:30 am PERFORMED BY: Attending: Anna Hernandez MD Performed By: Eduardo Karimi [facility] Referred By: Nancie Lenz [facility] Ref. Address: [address] [place] [id number] Location: [place] [facility] ([facility]) SERVICE(S) PROVIDED: BPP without NST 29003 INDICATIONS: Obesity complicating , 3rdtrimester O99.213 Morbid obesity E66.01 Encounter for other screening Z36.2 follow-up 40 weeks gestation of Z3A.40 TECHNIQUE/SCAN QUALITY: Technique: Transabdominal Scan Satisfactory Quality: OB HISTORY: : 2 Term: 1 Livin VITAL SIGNS: Weight (lb) Height BMI 228 5'2 41.7 EVALUATION: Number Of Fetuses: 1 Cardiac Activity: Observed Presentation: Cephalic Placenta Location: Anterior Appearance: Grade 2 Relation to CVX: No previa Amniotic Fluid FARSHAD FV: Within Normal Limits RUQ(cm) RLQ(cm) 4.36 3.53 FARSHAD Sum(cm) %Tile Largest Pocket(cm) 7.89 12 4.36 Comment: A >2 x 2 cm pocket of fluid is noted. BIOPHYSICAL EVALUATION: Amniotic F.V: Within normal limits F. Tone: Observed F. Movement: Observed Score: 8/8 F. Breathing: Observed BIOMETRY: GESTATIONAL AGE: LMP: 40w 0d Date: 02/03/24 DUSTY: 11/09/24 Best: 40w 0d Det. By: LMP (02/03/24) DUSTY: 11/09/24 STANDARD ANATOMY: Cranium: Normal appearance Stomach: Normal appearance Kidneys: Normal appearance Bladder: Normal appearance COMMENTS: Ms. Gupta is being seen for a BPP due to a nonreactive NST done for BMI >40. - Her medical history is significant for class III obesity. - Her obstetrical history is significant for one term vaginal delivery. Her child has pulmonary stenosis and is followed by a analysis mgr. - She had cell free DNA screening. Results were low-risk for all conditions assessed. - Ultrasound findings: biomtery was not obtained during today's visit. (EFW done on 10/14 was at the 58% with the abdominal circumference at the 98Th%). The amniotic fluid volume is appropriate for the gestational age. - A biophysical profile was performed and was 01/29. The biophysical began at 10:34 AM and ended at 10:40 AM. - Anna Hernandez MD Electronically Signed Final Report 11/09/2024 11:31 am Impression: Recommendations: As this is the 2nd non-reactive NST and Ms. Gupta is term, delivery is recommended at this time. This recommendation was discussed with Nancie Lenz who will coordinate sending Ms. Gupta in for induction. Assessment/Plan Principal Problem: Encounter for induction of labor Date Noted: 11/09/2024 34 yo @ 40w0d GBS negative, VSS and wnl. FWBR cat1 admitted for IOL -start cervical ripening with Misoprostol as per protocol ---if needed OK for CB, Oxytocin and AROM as clinically indicated -OK for pain management PRN, including epidural as per anesthesia when desired. -cont EFM/[place] as per protocol I have reviewed both her epic charts and she is appropriate for independent CNM care. I am available for consultation and intervention as needed. Binh Thomas MD Progress Notes - Routine Pre brian - 11/09/2024 - GA:40w0d 11/09/2024 - 40w0d - Nancie Lenz, CNM OB Visit: Vitals BP: 110/81 Weight: 104 kg (228 lb 6.4 oz) Assessment Heart Rate: 135 Fundal Height (cm): 39 cm Movement: Present Presentation: Cephalic Vaginal Drainage Leaking Fluid: No Dilation/Effacement/Station Dilation: 1 Effacement (%): 40 Station: -3 34 y.o. old female at 40w0d. Doing well. Appropriate FM. No LOF/VB/cramping. Her only new concern is None. Wants membranes stripped. Otherwise healthy . Taking PNV, iron and ASA. Her BP is reviewed and is Normal. This patient does not require a urine drug screen. NST non reactive today. Sent down for BPP. Signs and symptoms of labor reviewed including reasons to call triage. Problem List reviewed and updated. RTO 1 weeks. NST- Baseline- 135 Variability- Min to mod Accels- 1/20 min Decels- None Ctx- None Results- Non reactive Action- Sent down for BPP Addendum- Spoke with MFM, Dr. Hernandez- recommends IOL due to non reactive NST for the past 3 weeks and pt is at Term. She also verbalized concerns for AC being at 98%tile, head smaller- does Not recommend Vacuum assisted delivery. TC to Dr. Anderson- made aware of plan- pt will come in tonight for IOL, plan for CCB. R/B of IOL discussed with pt. She agrees with plan for IOL tonight. Nancie Lenz CNM on 11/09/2024 at 12:30 PM EDT Progress Notes - Routine Pre - 11/06/2024 - GA:39w4d 11/06/2024 - 39w4d - Susannah Reynoso i, [place] Patient here today for blood pressure check. Had office visit with Tana Dior for appt and NST, nst was not reactive so patient was sent to [facility] due to not being able to go to [facility] for 3:30 for a BPP. Patients blood pressure was good today and she was scheduled for follow up luke and nst for Saturday11/09/2024 with Nancie Lenz. Progress Notes - Hospital En counter - 11/05/2024 - GA:39w3d 11/05/2024 - 39w3d - Jenn Crowley RN Patients came in for NST and BPP. Patient denies vaginal bleeding or leaking of fluid. Patient states feels normal baby movement. NST reactive and BPP 04/02 which was done by OB provider. Patient educated on signs and symptoms to look out for and when to call. Patient aware of all follow-up appointments. Patient denies any questions at this time. Patient discharged home with all belongings and family. Progress Notes - Routine Pre - 11/05/2024 - GA:39w3d 11/05/2024 - 39w3d - Tana Dior CNM Vitals BP: (!) 124/91 Weight: 102 kg (224 lb) Assessment Heart Rate: 125 Fundal Height (cm): 38 cm Movement: Present Presentation: Cephalic Vaginal Drainage Leaking Fluid: No Dilation/Effacement/Station Dilation: Closed Effacement (%): 0 Station: Bandar Gupta at 39w3d presents for her routine ob visit. She is taking her PNV as ordered. Tries to remember the baby asa, not taking the iron makes her feel sick. She denies VB/LOF/ucs. She reports + FM. She denies headaches, visual changes, epigastric pain and edema. She has the following concerns wants her membranes swept. complicated by obesity, anemia,and elevated bp today. Vital signs reviewed and are abnormal BP 124/91. SVE LTC external os 1 but closed internal os. Problem reviewed and updated. She will RTO tomorrow for BP check. Reviewed with her s/s of labor/reasons to call triage. Reviewed s/s of PEC to report. Patient directed to for BPP. OB NST obesity Baseline: 125 Variability: moderate Accels: 0 in 20mins up to 40mins Decels: Absent Ctx: none Findings: non-reactive Follow-up: stat BPP ordered Tana Dior CNM Progress Notes - Routine Pre brian - 10/29/2024 - GA:38w3d 10/29/2024 - 38w3d - Nancie Lenz CNM OB Visit: Vitals BP: 112/82 Weight: 103 kg (227 lb) Assessment Heart Rate: 125 Fundal Height (cm): 38 cm Movement: Present Presentation: Cephalic Vaginal Drainage Leaking Fluid: No 34 y.o. old female at 38w3d. Doing well. Appropriate FM. No LOF/VB/cramping. Her only new concern is none. Otherwise healthy . NST attempted for Obesity in preg, difficulty getting a baseline initially- a lot of movements and FHT sounded irregular and unsure if its due to the frequent movements. There was a echo done in June for fam hx of pulmonary valve stenosis- echo demonstrated heart structurally normal. Pt sent down for stat BPP and US tech aware of irregular heart tones noted during tracing. Her BP is reviewed and is Normal. This patient does not require a urine drug screen. Plan for cervical check next visit and if dilated she wants membrane sweep. Signs and symptoms of labor reviewed including reasons to call triage. Problem List reviewed and updated. RTO 1 weeks. NST- unsatisfactory- too much movement and unable to get a clear baseline. Pt sent for BPP BPP- 01/29 Nancie Lenz CNM on 10/29/2024 at 5:43 PM EDT Progress Notes - Routine Pre brian - 10/22/2024 - GA:37w3d 10/22/2024 - 37w3d - Nancie Lenz CNM OB Visit: Vitals BP: 118/86 Weight: 103 kg (226 lb) Assessment Heart Rate: 120 Fundal Height (cm): 36 cm Movement: Present Presentation: Cephalic Vaginal Drainage Leaking Fluid: No 34 y.o. old female at 37w3d. Doing well. Appropriate FM. No LOF/VB/cramping. Her only new concern is none. Had a recent normal growth scan, but abdominal circ was 98%tile- MFM suggest repeat GTT. 3hr GTT ordered today as pt has had elevated 1hr GTT. She agrees with plan. Taking PNV, ASA and iron. Otherwise healthy . Her BP is reviewed and is Normal. NST- reactive today. GBS was negative. This patient does not require a urine drug screen. Signs and symptoms of labor reviewed including reasons to call triage. Problem List reviewed and updated. RTO 1 weeks. NST- 120/mod/+accels/ no decels No contractions Reactive tracing Nancie Lenz CNM on 10/22/2024 at 11:38 AM EDT Progress Notes - Routine Pre - 10/14/2024 - GA:36w2d 10/14/2024 - 36w2d - Nancie Lenz CNM OB Visit: Vitals BP: 113/81 Weight: 101 kg (223 lb) Assessment Heart Rate: 125 Fundal Height (cm): 36 cm Movement: Present Presentation: Cephalic Vaginal Drainage Leaking Fluid: No 34 y.o. old female at 36w2d. Doing well. Here accompanied by her mom. Has good family support, has Vistaril for PRN use for anxiety- hasn't been using. Encouraged to use PRN. Has days that are rough, yesterday was 1 month anniversary of her so had a hard time sleeping. She has not had any weight gain this , she reports eating all her meals with the exception of yesterday where she had low appetite because was feeling sad. Otherwise reports eating well. 36 week growth US ordered. Appropriate FM. No LOF/VB/no contractions- just some pelvic pressure. Her only new concern is None. Preg craddle and comfort measures reviewed. Otherwise healthy . Her BP is reviewed and is Normal. Tdap not indicated at today's visit. This patient has received Tdap during this . This patient does not require a urine drug screen. This patient's VTE risk status is low. Signs and symptoms of labor reviewed including reasons to call triage. Problem List reviewed and updated. RTO 1 weeks. Patient is not planning to breast feed. NST- 125, Mod, +accels, no decels Ctx- none Nancie Lenz CNM on 10/14/2024 at 1:11 PM EDT Progress Notes - Routine Pre - 10/01/2024 - GA:34w3d 10/01/2024 - 34w3d - Tana Dior CNM Vitals BP: 117/81 Weight: 103 kg (226 lb) Mary Gupta at 34w3d presents for her routine ob visit. She is taking her PNV, baby asa and iron as ordered. She denies VB/LOF/ucs. She reports + FM. She has the following concerns none. complicated by kidney cysts and maternal obesity. Vital signs reviewed and are normal. Problem reviewed and updated. She will RTO in for weekly nsts and in 2 weeks for routine ob care or PRN. Reviewed with her s/s of labor/reasons to call triage. 09/17/24 sono The estimated weight is 1910 grams, at the 31st percentile. There appears to be multiple small connecting cysts within the kidneys. There is no ureter or pelvic dilatation seen. There is a nomal bladder and stomach seen. The amniotic fluid volume is appropriate for the gestational age. F/u sono for kidney assessment scheduled for tomorrow. Tana Dior CNM NST: obesity Baseline:125-130 Variability: moderate Accelerations: 2 in 10 mins Decelerations: absent Contractions: none in 10 mins NST results reactive Tana Dior CNM Progress Notes - Routine Pre - 09/17/2024 - GA:32w3d 09/17/2024 - 32w3d - Nancie Lenz CNM OB Visit: Vitals BP: 122/81 Weight: 101 kg (222 lb 6.4 oz) Assessment Heart Rate: 140 Fundal Height (cm): 31 cm Movement: Present Vaginal Drainage Leaking Fluid: No 34 y.o. old female at 32w3d. Doing well. Appropriate FM. No LOF/VB/cramping. Taking PNV and irion. Her only new concern is her recently on 09/12 from an unexpected illness. She has good family support, having some anxiety and difficulty sleeping. Condolences given, offered meds for anxiety/sleep- she accepts. Otherwise healthy . Her BP is reviewed and is Normal. Signs and symptoms of labor reviewed including reasons to call triage. Will start NSTs at 34 weeks. Growth US scheduled for today. The patient does not require anesthesia consult. Problem List reviewed and updated. RTO 2 weeks. Nancie Lenz CNM on 09/17/2024 at 1:31 PM EDT Progress Notes - Routine Pre - 09/03/2024 - GA:30w3d 09/03/2024 - 30w3d - Nancie Lenz CNM OB Visit: Vitals BP: 124/83 Weight: 103 kg (227 lb) Assessment Heart Rate: 150 Fundal Height (cm): 30 cm Movement: Present Vaginal Drainage Leaking Fluid: No 34 y.o. old female at 30w3d. Doing well. Appropriate FM. No LOF/VB/cramping. Her only new concern is none. Taking PNV and iron. Otherwise healthy . Her BP is reviewed and is Normal. Tdap was offered and accepted. This patient has not received Tdap during this . She received her Rhogam. She has growth US at 32 weeks and start NST at 34 weeks. She is still not up at Pregravid weight but her weight is increasing. This patient has received syphilis testing during this . This patient does not require a urine drug screen. Desires Tubal: Yes. Signs and symptoms of labor reviewed including reasons to call triage. Problem List reviewed and updated. RTO 2 weeks. Nancie Lenz CNM on 09/03/2024 at 12:22 PM EDT Progress Notes - Routine Pre - 08/14/2024 - GA:27w4d 08/14/2024 - w - Jaci Ruiz CNM Subjective Chief Complaint Patient presents with Routine Visit Mary Gupta is a 34 y.o. at 27w4d with a working estimated date of delivery of Estimated Date of Delivery: 11/09/24 by Last Menstrual Period who presents for a routine visit. She denies vaginal bleeding or leakage of fluid, denies uc. reports FM For over a wk had this boil on right buttocks using warm soaks finally ruptured and is painful, cultured today Right inner buttock draining serousang Dx wit flu on 08/08 Objective Physical Exam Vitals BP: 113/66 Weight: 101 kg (222 lb) Ob check list: Tdap due: offer nv Flu vaccine due: n/a If glucose completed: neg [id number] Gbs: n/a Problem list reviewed. Assessment/Plan Supervision of other normal , antepartum (Primary) Abscess of buttock, right - Culture wound with gram stain; Future 27 weeks gestation of Other orders - cephalexin (KEFLEX) 250 mg capsule; Take 1 capsule (250 mg total) by mouth 4 (four) times a day for 10 days. Dispense: 40 each; Refill: 0 1. Pending culture 2. Rx sent will see if continue or change rx 3. F/u prn 4. Continue care of abscess reviewed keep clean continue soaks Progress Notes - Routine Pre brian - 08/07/2024 - GA:26w4d 08/07/2024 - w4d - Nancie Lenz CNM OB Visit: Vitals BP: 115/72 Weight: 100 kg (221 lb) Assessment Heart Rate: 150 Fundal Height (cm): 26 cm Movement: Present Vaginal Drainage Leaking Fluid: No 34 y.o. old female at 26w4d. Doing well. Positive FM. No LOF/VB/cramping. Her only new concern is None. Taking PNV and ASA. Otherwise healthy . Her BP is reviewed and is Normal. She does not require a urine drug screen. Normal 28 week labs with mild anemia- iron supplements sent. RH neg, will check RH status and see if she needs to return for Rhogam. Signs and symptoms of labor reviewed including reasons to call triage. Problem List reviewed and updated. RTO 4 weeks. Patient is not planning to breast feed. Nancie Lenz CNM on 08/07/2024 at 5:27 PM EST Progress Notes - Routine Pre - 07/10/2024 - GA:22w4d 07/10/2024 - 22w4d - Nancie Lenz CNM OB Visit: Vitals BP: 117/75 Weight: 103 kg (226 lb) Assessment Heart Rate: 140 Fundal Height (cm): 22 cm Movement: Present Vaginal Drainage Leaking Fluid: No 34 y.o. old female at 22w4d. Doing well. Positive FM. No LOF/VB/cramping. Her only new concern is none. Taking PNV and ASA. Otherwise healthy . Normal FAS, has upcoming apt for Echo due to fam hx. Her BP is reviewed and is Normal. Aneuploidy screening reviewed; it is Normal. MSAFP deferred by patient. She does not require a urine drug screen. Signs and symptoms of labor reviewed including reasons to call triage. Problem List reviewed and updated. RTO 4 weeks. Nancie Lenz CNM on 07/10/2024 at 1:12 PM EST Progress Notes - Routine Pre - 06/03/2024 - GA:17w2d 06/03/2024 - 17w2d - Silvia Mccann CNM OB Visit: Vitals BP: 110/69 Assessment Heart Rate: 150 Fundal Height (cm): 16 cm Movement: Absent 34 y.o. old female at 17w2d. Doing well. no FM. No LOF/VB/cramping. Her only new concern is cold onset 06/01/2024. States she was seen at director of primary care to R/O strep(neg). She is C/O cough. Taking nothing for cold. Discuss comfort measures and medication such as robitussin, Claritin and lozenges Otherwise healthy . Her BP is reviewed and is Normal. Aneuploidy screening reviewed; it is Normal. MSAFP ordered. She does not require a urine drug screen. Signs and symptoms of labor reviewed including reasons to call triage. Problem List reviewed and updated. RTO 4 weeks. Silvia Mccann CNM on 06/03/2024 at 11:40 AM EST Progress Notes - Initial Pre brian - 05/08/2024 - GA:13w4d 05/08/2024 - 13w4d - Nancie Lenz CNM Subjective: Mary Gupta IUP 13w4d here for IP visit with Her is planned She and the of the baby are happy. Patient Patient's last menstrual period was 02/03/2024.. She is certain of her LMP with regular cycles. is currently dated by lmp confirmed by first trim u/s She complains of breast tenderness and nausea. Occasional vomiting. Using B6 with good relief. She denies vaginal bleeding or cramping. she had early US that demonstrated small subchorionic hemorrhage. Flu vaccine declined at today's visit. Review of Systems Constitutional: Negative for fever. HENT: Negative. Respiratory: Negative. Cardiovascular: Negative. Gastrointestinal: Positive for nausea. Endocrine: Negative. Genitourinary: Negative. Musculoskeletal: Negative. Breast: negative. Neurological: Negative. Psychiatric/Behavioral: Negative. Objective Physical Exam- See PE Vitals: 05/08/24 1308 BP: 127/80 Vitals BP: 127/80 Weight: 102 kg (225 lb) Heart Rate: 160 Stilwell Depression Scale: In the Past 7 Days I have been able to laugh and see the funny side of things.: As much as I always could I have looked forward with enjoyment to things.: As much as I ever did I have blamed myself unnecessarily when things went wrong.: No, never I have been anxious or worried for no good reason.: No, not at all I have felt scared or panicky for no good reason.: No, not at all Things have been getting on top of me.: No, I have been coping as well as ever I have been so unhappy that I have had difficulty sleeping.: Not at all I have felt sad or miserable.: No, not at all I have been so unhappy that I have been crying.: No, never The thought of harming myself has occurred to me.: Never Stilwell Depression Scale Total: 0 PN Check List: Pap is not indicated at today's visit Std screening was collected at today's visit Panoranc screening neg Depression screen negative level II high risk Anatomy ultrasound to be scheduled in June Assessment/Plan Problem List Items Addressed This Visit Visit Diagnoses Supervision of other normal , antepartum - Primary Screen for STD (sexually transmitted disease) Relevant Orders Chlamydia trachomatis and Neisseria gonorrhoeae molecular study Obesity in Rh negative state in antepartum period Reviewed early warning signs and action to take Continue PNV N/V management options Hydration encouraged Obesity in plan- ASA ordered and we reviewed weight gain in Delivery at [facility] Breast feeding encouraged RTO in 4 weeks and sooner if needed Nancie Lenz CNM Last Filed Vital Signs Vital Sign Reading Time Taken Comments Blood Pressure 134/84 12/22/2024 12:55 PM EDT Pulse 88 11/11/2024 4:20 PM EDT Temperature 36.8 C (98.2 F) 11/11/2024 4:20 PM EDT Respiratory Rate 16 11/11/2024 4:20 PM EDT Oxygen Saturation 97% 11/11/2024 4:20 PM EDT Inhaled Oxygen Concentration - - Weight 91.2 kg (201 lb) 12/22/2024 12:55 PM EDT Height 157.5 cm (5' 2 ) 07/10/2024 12:55 PM EST Body Mass Index 36.76 07/10/2024 12:55 PM EST Plan of Treatment Upcoming Encounters Date Type Department Care Team (Late st Contact Info) Description 07/19/2025 4:00 PM EST [facility] [address] [facility] [place] [phone] Teresa Winters MD [address] [place], [place] Health Maintenance Due Date Last Done Comments HPV Vaccines (2 - 3-dose series) 11/18/2007 10/21/2007 Cholesterol Screening (Lipid Panel) 07/24/2023 Hepatitis C Screening 07/24/2023 COVID-19 Vaccine ( season) 2024 11/29/2020, 11/08/2020 Depression Screening 06/24/2024 Hypertension/CHF/CAD Annual BMP Blood Test 11/05/2024 Influenza Vaccine (#1) 2025 03/24/2018 Social Influencers of Health Screening 11/11/2025 11/11/2024 Cervical Cancer Screening: HPV 10/28/2028 10/29/2023 DTaP,Tdap,and Td Vaccines (10 - Td or Tdap) 09/03/2034 09/03/2024, 01/31/2018, 05/27/2013, Additional history exists HIB Vaccines Completed 07/25/1992, 06/1992, 1991, Additional history exists IPV Vaccines Completed 10/06/1996, 06/1992, 07/25/1992, Additional history exists MMR Vaccines Completed 10/06/1996, 07/25/1992 Hepatitis B Vaccines Completed 07/17/2013, 05/13/1997, 10/29/1996, Additional history exists Varicella Vaccines Aged Out 07/17/2013, 12/17/2000 No longer eligible based on patient's age to complete this topic HIV Screening Completed 04/17/2024, 09/27/2017 Hepatitis A Vaccines Aged Out No long er eligible based on patient's age to complete this topic Meningococcal ACWY Vaccine Aged Out N o longer eligible based on patient's age to complete this topic Meningococcal B Vaccine Aged Out No l onger eligible based on patient's age to complete this topic Pneumococcal Vaccine: Pediatrics (0 to 5 Years) and At-Risk Patients (6 to 49 Years) Aged Out No longer eligible based on patient's age to complete this topic RSV Immunization Patients Under 20 months Aged Out No longer eligible based on patient's age to complete this topic Procedures Procedure Name Priority Date/Time Associated Diagnosis Comments EXTERNAL ULTRASOUND REPORT 11/12/2024 RHIG EVALUATION Routine 11/10/2024 7:27 PM EDT TH AN NERVE BLK LUMBAR EPIDURAL (NO CHARGE) Routine 11/10/2024 9:08 AM EDT CBC WITH AUTO DIFFERENTIAL STAT 11/09/2024 9:40 PM EDT TREPONEMA PALLIDUM ANTIBODY WITH REFLEX TO RPR AND PARTICLE AGGLUTINATION Routine 11/09/2024 9:40 PM EDT TYPE AND SCREEN STAT 11/09/2024 9:40 PM EDT CBC AND DIFFERENTIAL STAT 11/09/2024 9:40 PM EDT US BIOPHYSICAL PROFILE WO NON STRESS TEST STAT 11/09/2024 10:46 AM EDT care, subsequent in third trimester Family history of pulmonary valve stenosis Elevated glucose tolerance test Anemia during Rh negative state in antepartum period 39 weeks gestation of Elevated blood pressure affecting in third trimester, antepartum Non-reactive NST (non-stress test) Obesity in US BIOPHYSICAL PROFILE WO NON STRESS TEST STAT 10/29/2024 2:46 PM EDT Obesity in GTT GESTATIONAL 3 HOUR Routine 12:11 PM EDT Obesity in GTT GESTATIONAL 2 HOUR Routine 5 11:11 AM EDT Obesity in GTT GESTATIONAL 1 HOUR Routine 5 10:14 AM EDT Obesity in GTT GESTATIONAL FASTING Routine 10/23/2024 9:11 AM EDT Obesity in GLUCOSE TOLERANCE TEST, 3H GESTATION Routine 10/23/2024 9:11 AM EDT Obesity in US OB FOLLOWUP PER FETUS Routine 10/14/2024 3:21 PM EDT care, subsequent in third trimester Obesity in STREP B PCR Routine 10/14/2024 11:25 AM EDT care, subsequent in third trimester HM HPV Routine 10/29/2023 HM HIV SCREENING Routine 09/27/2017 from Last 3 Months or Most Recently Relevant to Health Maintenance Results * External Ultrasound Report (11/12/2024) Anatomical Region Laterality Modality Ultrasound us Provider Onbase MD LARKIN US PROCEDURES Final Resul t * RhIG evaluation (11/10/2024 7:27 PM EDT) Bleed Screen Negative 11/10/2024 8:54 PM EDT [facility] RhIG Candidate 1 Vial 300 mcg 11/10/2024 8:54 PM EDT [facility] Blood Venous blood specimen / Unknown Venipuncture / Unknown 11/10/2024 7:27 PM EDT 11/10/2024 7:41 PM EDT us Binh Thomas MD LAB BLOOD BANK TEST ORD ERABLES Edited Result - Final [facility] [address] [place] [address], * TH AN NERVE BLK LUMBAR EPIDURAL (NO CHARGE) (11/10/2024 9:08 AM EDT) Jeffery Davalos DO - 11/10/2024 9:08 AM EDT Jeffery Eng DO 11/10/2024 10:19 AM Epidural Block Patient location during procedure: OB Start time: 11/10/2024 9:08 AM End time: 11/10/2024 9:26 AM Reason for block: labor epidural Staffing Performed: anesthesiologist Anesthesiologist: Jeffery Eng DO Performed by: Jeffery Eng DO Authorized by: Jeffery Eng DO Preanesthetic Checklist Completed: patient identified, IV checked, risks and benefits discussed, surgical consent, monitors and equipment checked, pre-op evaluation and timeout performed Epidural Patient Position: sitting Monitoring: heart rate, continuous pulse ox and NIBP Approach: midline Vertebral Space: lumbar Lumbar Location: L2-3 Needle Needle type: Tuohy Needle gauge: 18 G Needle length: 8.5 cm Needle insertion depth: 7 cm Catheter at skin depth: 12 cm Test dose: negative and lidocaine 1.5% with epinephrine 1-to-200,000 Assessment Sensory level: T10 Events: negative aspiration for heme, no paresthesia on injection and incremental injection every 5 mL Additional Notes Patient consented prior to procedure. Seated with monitors on. Back was prepped and draped and procedure took place under sterile conditions. Skin wheal placed with Lidocaine 1% (Plain) infiltration. 18G Touhy needle placed. [place] with saline at 7 cm. Catheter thread easily and left at 12 cm. NO Heme on aspiration ; NO CSF on aspiration; NO Paresthesias from either needle or catheter. Patient was bolused with 5 ml of 0.1% bupivacaine with 2 mcg/ml fentanyl off the epidural bag dilute down with 7 ml of NS. Patient with improved comfort with contractions bilaterally at the conclusion of this encounter. Procedure was tolerated well. Placed in LUC position subsequent to procedure completion. Jeffery Eng DO ANESTHESIA ORDERABLES Edited Re sult - Final * Treponema pallidum antibody with reflex to RPR and particle agglutination (11/09/2024 9:40 PM EDT) Pathologist [facility] T. Pallidum Antibodies Negative Negative LAB CHEMISTRY METHOD 11/09/2024 10:34 PM EDT [facility] Blood Venous blood specimen / Unknown Venipuncture / Unknown 11/09/2024 9:40 PM EDT 11/09/2024 9:47 PM EDT Louie SCHWARZ LAB BLOOD ORDERABLES Final Res ult [facility] [address] [place] [address], * (ABNORMAL) CBC auto differential (11/09/2024 9:40 PM EDT) WBC 10.3 4.8 - 10.8 K/mcL LAB HEMETOLOGY METHOD 11/09/2024 9:55 PM EDT [facility] RBC 3.50(L) 3.80 - 4.80 M/mcL LAB HEMETOLOGY METHOD 11/09/2024 9:55 PM EDT [facility] Hemoglobin 10.6(L) 11.5 - 16.0 g/dL LAB HEMETOLOGY METHOD 11/09/2024 9:55 PM EDT [facility] Hematocrit 31.7(L) 35.0 - 47.0 % LAB HEMETOLOGY METHOD 11/09/2024 9:55 PM EDT [facility] MCV 89.5 79.0 - 98.0 FL LAB HEMETOLOGY METHOD 11/09/2024 9:55 PM EDT [facility] MCH 29.9 27.0 - 32.0 pcg LAB HEMETOLOGY METHOD 11/09/2024 9:55 PM EDT [facility] MCHC 33.4 32.0 - 37.0 g/dL LAB HEMETOLOGY METHOD 11/09/2024 9:55 PM EDT [facility] RDW 14.0 11.0 - 15.0 % LAB HEMETOLOGY METHOD 11/09/2024 9:55 PM EDT [facility] Platelets 269 130 - 400 K/mcL LAB HEMETOLOGY METHOD 11/09/2024 9:55 PM EDT [facility] MPV 10.8 7.0 - 11.0 FL LAB HEMETOLOGY METHOD 11/09/2024 9:55 PM [facility] NRBC 0.0 <1.0 % LAB HEMETOLOGY METHOD 11/09/2024 9:55 PM EDT [facility] NRBC Absolute 0.00 <0.10 K/mcL LAB HEMETOLOGY METHOD 11/09/2024 9:55 PM EDT [facility] Neutrophils Relative 67.0 % LAB HEMETOLOGY METHOD 11/09/2024 9:55 PM EDT [facility] Lymphocytes Relative 21.3 % LAB HEMETOLOGY METHOD 11/09/2024 9:55 PM EDT [facility] Monocytes Relative 8.9 % LAB HEMETOLOGY METHOD 11/09/2024 9:55 PM EDT [facility] Eosinophils Relative 1.3 % LAB HEMETOLOGY METHOD 11/09/2024 9:55 PM EDT [facility] Basophils Relative 0.4 % LAB HEMETOLOGY METHOD 11/09/2024 9:55 PM EDT [facility] Immature Granulocytes Relative 1.1 % LAB HEMETOLOGY METHOD 11/09/2024 9:55 PM EDT [facility] Neutrophils Absolute 6.90 1.50 - 7.00 K/mcL LAB HEMETOLOGY METHOD 11/09/2024 9:55 PM EDT [facility] Lymphocytes Absolute 2.19 1.00 - 5.00 K/mcL LAB HEMETOLOGY METHOD 11/09/2024 9:55 PM EDT [facility] Monocytes Absolute 0.91 0.20 - 1.00 K/mcL LAB HEMETOLOGY METHOD 11/09/2024 9:55 PM EDT [facility] Eosinophils Absolute 0.13 0.00 - 0.50 K/mcL LAB HEMETOLOGY METHOD 11/09/2024 9:55 PM EDT [facility] Basophils Absolute 0.04 0.00 - 0.20 K/mcL LAB HEMETOLOGY METHOD 11/09/2024 9:55 PM EDT [facility] Immature Granulocytes Absolute 0.11(H) 0.00 - 0.03 K/mcL LAB HEMETOLOGY METHOD 11/09/2024 9:55 PM EDT [facility] Blood Venous blood specimen / Unknown Venipuncture / Unknown 11/09/2024 9:40 PM EDT 11/09/2024 9:47 PM EDT us Louie SCHWARZ LAB BLOOD ORDERABLES Final Res ult [facility] [address] [place] [address], [place] [phone] * Type and screen (11/09/2024 9:40 PM EDT) ABO Group A 11/09/2024 10:34 PM EDT [facility] Rh Type Negative 11/09/2024 10:34 PM EDT [facility] Antibody Screen Negative 11/09/2024 10:34 PM EDT [facility] Blood Venous blood specimen / Unknown Venipuncture / Unknown 11/09/2024 9:40 PM EDT 11/09/2024 9:47 PM EDT us Louie Gee [facility] BLOOD BANK TEST ORDERABLES Final Result [facility] [address] [place] [address], [place] [phone] * [place] Biophysical Profile wo Non Stress Test (11/09/2024 10:46 AM EDT) Only the most recent of2 resultswithin the time period is included. Anatomical Region Laterality Modality Body Ultrasound 11/09/2024 10:3 0 AM EDT Impressions 11/09/2024 11:31 AM EDT Recommendations: As this is the 2nd non-reactive NST and Ms. Gupta is term, delivery is recommended at this time. This recommendation was discussed with Nancie Lnez who will coordinate sending Ms. Gupta in for induction. Narrative 11/09/2024 11:31 AM EDT OBSTETRICS REPORT (Signed Final 11/09/2024 11:31 am) PATIENT INFO: ID #: [id number] : [birth year] (34 yrs)(F) Name: MARY GUPTA Visit Date: 11/09/2024 10:30 am PERFORMED BY: Attending: Anna Hernandez MD Performed By: Eduardo Karimi RDMS Referred By: Nancie Lenz CNM Ref. Address: [address] [place] [address] Location: [facility]) SERVICE(S) PROVIDED: BPP without NST [id number] INDICATIONS: Obesity complicating , 3rdtrimester O99.213 Morbid obesity E66.01 Encounter for other screening Z36.2 follow-up 40 weeks gestation of Z3A.40 TECHNIQUE/SCAN QUALITY: Technique: Transabdominal Scan Satisfactory Quality: OB HISTORY: : 2 Term: 1 Livin VITAL SIGNS: Weight (lb) Height BMI 228 5'2 41.7 EVALUATION: Number Of Fetuses: 1 Cardiac Activity: Observed Presentation: Cephalic Placenta Location: Anterior Appearance: Grade 2 Relation to CVX: No previa Amniotic Fluid FARSHAD FV: Within Normal Limits RUQ(cm) RLQ(cm) 4.36 3.53 FARSHAD Sum(cm) %Tile Largest Pocket(cm) 7.89 12 4.36 Comment: A >2 x 2 cm pocket of fluid is noted. BIOPHYSICAL EVALUATION: Amniotic F.V: Within normal limits F. Tone: Observed F. Movement: Observed Score: 01/29 F. Breathing: Observed BIOMETRY: GESTATIONAL AGE: LMP: 40w 0d Date: 02/03/24 DUSTY: 11/09/24 Best: 40w 0d Det. By: LMP (02/03/24) DUSTY: 11/09/24 STANDARD ANATOMY: Cranium: Normal appearance Stomach: Normal appearance Kidneys: Normal appearance Bladder: Normal appearance COMMENTS: Ms. Gupta is being seen for a BPP due to a nonreactive NST done for BMI >40. - Her medical history is significant for class III obesity. - Her obstetrical history is significant for one term vaginal delivery. Her child has pulmonary stenosis and is followed by a analysis mgr. - She had cell free DNA screening. Results were low-risk for all conditions assessed. - Ultrasound findings: biomtery was not obtained during today's visit. (EFW done on 10/14 was at the 58% with the abdominal circumference at the 98Th%). The amniotic fluid volume is appropriate for the gestational age. - A biophysical profile was performed and was 01/29. The biophysical began at 10:34 AM and ended at 10:40 AM. - Anna Hernandez MD Electronically Signed Final Report 11/09/2024 11:31 am Procedure Anna Samuel MD - 11/09/2024 OBSTETRICS REPORT (Signed Final 11/09/2024 11:31 am) PATIENT INFO: ID #: [id number] : [birth year] (34 yrs)(F) Name: MARY GUPTA Visit Date: 11/09/2024 10:30 am PERFORMED BY: Attending: Anna Hernandez MD Performed By: Eduardo Karimi RDMS Referred By: Nancie Lenz CNM Ref. Address: [address] [place] [id number] Location: [facility] SERVICE(S) PROVIDED: [place] [id number] INDICATIONS: Obesity complicating , 3rdimester O99.213 Morbid obesity E66.01 Encounter for other screening Z36.2 follow-up 40 weeks gestation of Z3A.40 TECHNIQUE/SCAN QUALITY: Technique: Transabdominal Scan Satisfactory Quality: OB HISTORY: : 2 Term: 1 Livin VITAL SIGNS: Weight (lb) Height BMI 228 5'2 41.7 EVALUATION: Number Of Fetuses: 1 Cardiac Activity: Observed Presentation: Cephalic Placenta Location: Anterior Appearance: Grade 2 Relation to CVX: No previa Amniotic Fluid FARSHAD FV: Within Normal Limits RUQ(cm) RLQ(cm) 4.36 3.53 FARSHAD Sum(cm) %Tile Largest Pocket(cm) 7.89 12 4.36 Comment: A >2 x 2 cm pocket of fluid is noted. BIOPHYSICAL EVALUATION: Amniotic F.V: Within normal limits F. Tone: Observed F. Movement: Observed Score: 01/29 F. Breathing: Observed BIOMETRY: GESTATIONAL AGE: LMP: 40w 0d Date: 02/03/24 DUSTY: 11/09/24 Best: 40w 0d Det. By: LMP (02/03/24) DUSTY: 11/09/24 STANDARD ANATOMY: Cranium: Normal appearance Stomach: Normal appearance Kidneys: Normal appearance Bladder: Normal appearance COMMENTS: Ms. Gupta is being seen for a BPP due to a nonreactive NST done for BMI >40. - Her medical history is significant for class III obesity. - Her obstetrical history is significant for one term vaginal delivery. Her child has pulmonary stenosis and is followed by a analysis mgr. - She had cell free DNA screening. Results were low-risk for all conditions assessed. - Ultrasound findings: biomtery was not obtained during today's visit. (EFW done on 10/14 was at the 58% with the abdominal circumference at the 98Th%). The amniotic fluid volume is appropriate for the gestational age. - A biophysical profile was performed and was 01/29. The biophysical began at 10:34 AM and ended at 10:40 AM. - Anna Hernandez MD Electronically Signed Final Report 11/09/2024 11:31 am IMPRESSION: Recommendations: As this is the 2nd non-reactive NST and Ms. Gupta is term, delivery is recommended at this time. This recommendation was discussed with Nancie Lenz who will coordinate sending Ms. Gupta in for induction. us Tana SCHWARZ IMG OB US PROCEDURES Final Resu lt * GTT gestational 3 hour (10/23/2024 12:11 PM EDT) Glucose, 3 HR Gestational 93 See Comment mg/dL LAB CHEMISTRY METHOD 10/23/2024 3:22 PM EDT [facility] Blood Venous blood specimen / Unknown Venipuncture / Unknown 10/23/2024 12:11 PM EDT 10/23/2024 12:11 PM EDT Narrative [facility] - 10/23/2024 3:22 PM EDT Gestational 3 hour GTT Reference Range: Normal: Fasting: < 95 mg/dL 60 minute: < 180 mg/dL 120 minute: < 155 mg/dL 180 minute: < 140 mg/dL us Nancie L Lenz CNM LAB BLOOD ORDERABLES Final Res ult Performing Organization Address City/[facility]/ZIP Co de Phone Number [facility] [address] [place] [address], [place] [phone] * GTT gestational 2 hour (10/23/2024 11:11 AM EDT) Glucose, 2 HR Gestational 135 See Comment mg/dL LAB CHEMISTRY METHOD 10/23/2024 3:21 PM EDT [facility] Blood Venous blood specimen / Unknown Venipuncture / Unknown 10/23/2024 11:11 AM EDT 10/23/2024 11:11 AM EDT us Nancie Lenz CNM LAB BLOOD ORDERABLES Final Res ult [facility] [address] [place] [address], [place] [phone] * GTT gestational 1 hour (10/23/2024 10:14 AM EDT) Glucose, 1 HR Gestational 131 See Comment mg/dL LAB CHEMISTRY METHOD 10/23/2024 3:22 PM EDT [facility] Blood Venous blood specimen / Unknown Venipuncture / Unknown 10/23/2024 10:14 AM EDT 10/23/2024 10:14 AM EDT Nancie Lenz [facility] BLOOD ORDERABLES Final Res ult Performing Organization Address [facility]/ZIP Co de Phone Number [facility] [address] [place] [address], [place] [phone] * GTT gestational fasting (10/23/2024 9:11 AM EDT) Glucose, GTT - Fasting 77 70 - 100 mg/dL LAB CHEMISTRY METHOD 10/23/2024 3:22 PM EDT [facility] Blood Venous blood specimen / Unknown Venipuncture / Unknown 10/23/2024 9:11 AM EDT 10/23/2024 9:11 AM EDT Nancie Lenz [facility] BLOOD ORDERABLES Final Res ult Performing Organization Address [facility] Co de Phone Number [facility] [address] [place] [address], [place] [phone] * US OB Followup per Fetus (10/14/2024 3:21 PM EDT) Anatomical Region Laterality Modality Body Ultrasound 10/14/2024 12:2 4 PM EDT Narrative 10/15/2024 8:46 AM EDT OBSTETRICS REPORT (Signed Final 10/15/2024 08:46 am) PATIENT INFO: ID #: [id number] : [birth year] (34 yrs)(F) Name: MARY GUPTA Visit Date: 10/14/2024 12:24 pm PERFORMED BY: Attending: Anna Hernandez MD Performed By: Eduardo Karimi RDMS Referred By: Nancie Lenz CNM Ref. Address: [address] [place] [address] Location: [facility]) SERVICE(S) PROVIDED: [place] [id number] INDICATIONS: Obesity complicating , 3rdtrimester O99.213 Morbid obesity E66.01 Uterine size-date discrepancy, third trimester O26.843 36 weeks gestation of Z3A.36 TECHNIQUE/SCAN QUALITY: Technique: Transabdominal Scan Satisfactory Quality: OB HISTORY: : 2 Term: 1 Livin VITAL SIGNS: Weight (lb) Height BMI 222 5'2 40.6 EVALUATION: Number Of Fetuses: 1 Heart Rate(bpm): 130 Cardiac Activity: Observed Appears regular Presentation: Cephalic Placenta Location: Anterior Appearance: Grade 2 Relation to CVX: No previa Amniotic Fluid FARSHAD FV: Within Normal Limits RUQ(cm) RLQ(cm) LLQ(cm) 4.31 2.03 3.09 FARSHAD Sum(cm) %Tile Largest Pocket(cm) 9.43 18 4.31 Comment: A >2 x 2 cm pocket of fluid is noted. BIOMETRY: BPD: 84.4 mm G.Age: 34w 0d 7 % HC: 314.1 mm G.Age: 35w 2d 6 % AC: 346.7 mm G.Age: 38w 4d 98 % FL: 64.7 mm G.Age: 33w 3d 1.7 % CI: 72.97 % 70 - 86 FL/HC: 20.6 % 20.1 - 22.1 HC/AC: 0.91 0.93 - 1.11 FL/BPD: 76.7 % 71 - 87 FL/AC: 18.7 % 20 - 24 Est. FW: 2945 gm 6 lb 8 oz 58 % GESTATIONAL AGE: LMP: 36w 2d Date: 02/03/24 DUSTY: 11/09/24 / Today: 35w 2d DUSTY: 11/16/24 Best: 36w 2d Det. By: LMP (02/03/24) DUSTY: 11/09/24 STANDARD ANATOMY: Cranium: Normal appearance Stomach: Normal appearance Kidneys: Normal appearance Bladder: Normal appearance COMMENTS: Ms. Gupta is being seen for assessment of growth due to a BMI >40. - Her medical history is significant for class III obesity. - Her obstetrical history is significant for one term vaginal delivery. Her child has pulmonary stenosis and is followed by a analysis mgr. No surgery needed at this time. - She had cell free DNA screening. Results were low-risk for all conditions assessed. - Ultrasound findings: The estimated weight is 2945 grams, at 58th percentile. The abdominal circumference is at the 98th% for the gestational age. The amniotic fluid volume is appropriate for the gestational age. - The findings were conveyed to the patient by Dr. Hernandez during the ultrasound. Plan: No additional ultrasounds have been scheduled. Follow up as clinically indicated. Consider re screening for gestational diabetes. Anna Hernandez MD Electronically Signed Final Report 10/15/2024 08:46 am Procedure Anna Samuel MD - 10/15/2024 OBSTETRICS REPORT (Signed Final 10/15/2024 08:46 am) PATIENT INFO: ID #: [id number] : [birth year] (34 yrs)(F) Name: MARY GUPTA Visit Date: 10/14/2024 12:24 pm PERFORMED BY: Attending: Anna Hernandez MD Performed By: Eduardo Karimi RDMS Referred By: Nancie SCHWARZ Ref. Address: [address] [place] [id number] Location: [facility]) SERVICE(S) PROVIDED: [place] [id number] INDICATIONS: Obesity complicating , 3rdtrimester O99.213 Morbid obesity E66.01 Uterine size-date discrepancy, third trimester O26.843 36 weeks gestation of Z3A.36 TECHNIQUE/SCAN QUALITY: Technique: Transabdominal Scan Satisfactory Quality: OB HISTORY: : 2 Term: 1 Livin VITAL SIGNS: Weight (lb) Height BMI 222 5'2 40.6 EVALUATION: Number Of Fetuses: 1 Heart Rate(bpm): 130 Cardiac Activity: Observed Appears regular Presentation: Cephalic Placenta Location: Anterior Appearance: Grade 2 Relation to CVX: No previa Amniotic Fluid FARSHAD FV: Within Normal Limits RUQ(cm) RLQ(cm) LLQ(cm) 4.31 2.03 3.09 FARSHAD Sum(cm) %Tile Largest Pocket(cm) 9.43 18 4.31 Comment: A >2 x 2 cm pocket of fluid is noted. BIOMETRY: BPD: 84.4 mm G.Age: 34w 0d 7 % HC: 314.1 mm G.Age: 35w 2d 6 % AC: 346.7 mm G.Age: 38w 4d 98 % FL: 64.7 mm G.Age: 33w 3d 1.7 % CI: 72.97 % 70 - 86 FL/HC: 20.6 % 20.1 - 22.1 HC/AC: 0.91 0.93 - 1.11 FL/BPD: 76.7 % 71 - 87 FL/AC: 18.7 % 20 - 24 Est. FW: 2945 gm 6 lb 8 oz 58 % GESTATIONAL AGE: LMP: 36w 2d Date: 02/03/24 DUSTY: 11/09/24 U/S Today: 35w 2d DUSTY: 11/16/24 Best: 36w 2d Det. By: LMP (02/03/24) DUSTY: 11/09/24 STANDARD ANATOMY: Cranium: Normal appearance Stomach: Normal appearance Kidneys: Normal appearance Bladder: Normal appearance COMMENTS: Ms. Gupta is being seen for assessment of growth due to a BMI >40. - Her medical history is significant for class III obesity. - Her obstetrical history is significant for one term vaginal delivery. Her child has pulmonary stenosis and is followed by a analysis mgr. No surgery needed at this time. - She had cell free DNA screening. Results were low-risk for all conditions assessed. - Ultrasound findings: The estimated weight is 2945 grams, at 58th percentile. The abdominal circumference is at the 98th% for the gestational age. The amniotic fluid volume is appropriate for the gestational age. - The findings were conveyed to the patient by Dr. Hernandez during the ultrasound. Plan: No additional ultrasounds have been scheduled. Follow up as clinically indicated. Consider re screening for gestational diabetes. Anna Hernandez MD Electronically Signed Final Report 10/15/2024 08:46 am us Nancie Lenz CNM IMG OB US PROCEDURES Final Res ult * Strep B molecular study (10/14/2024 11:25 AM EDT) [facility] B Strep PCR Not Detected Not Detected LAB MICROBIOLOGY METHOD 10/16/2024 8:53 AM EDT [facility] Swab Pooled specimen from vaginal introitus and rectal swab / Unknown Non-blood Collection / Unknown 10/14/2024 11:25 AM EDT 10/14/2024 11:25 AM EDT Nancie SCHWARZ LAB BLOOD ORDERABLES Final Res ult [facility] [address] [place] [address], [place] [phone] * Cervical Cancer Screening: HPV (10/29/2023) [facility] Cervical Cancer Screening: HPV negative, abstracted Historical Provider HEALTH MAINTENANCE Final Result * HIV Screening (09/27/2017) [facility] HIV Screening abstracted Historical Provider HEALTH MAINTENANCE Final Result from Last 3 Months or Most Recently Relevant to Health Maintenance Insurance [employer] Advance Directives * Full Code - Confirmed (Latest Code Status on File) Date Activated Date Inactivated Comments 11/09/2024 9:31 PM 11/11/2024 9:04 PM Care Teams Cut Tobacco Bulker Relationship Specialty Start Date End Date Teresa Winters MD [address] [place] [address] PCP - General Internal Medicine 12/15/24
== END 2025-01-13 14:55 | disposition home or self-care (01) ==
LOC: HO.HGS 14:37
PROVIDERS: Visit Provider Surgery
DX: K80.20 Calculus of gallbladder without cholecystitis without obstruction (principal); K42.0 Umbilical hernia with obstruction, without gangrene
CPT/HCPCS: 99214

== ENCOUNTER → 2025-01-13 14:37 | Outpatient (BNVA) | payer OTHER, SELFPAY | PROVIDERS: Visit Provider Surgery | DX: K80.20 Calculus of gallbladder without cholecystitis without obstruction (principal) | CPT/HCPCS: 99212 ==

== ENCOUNTER 2025-04-09 08:34 | Day surgery (SDC) | payer OTHER, SELFPAY ==
--- OUTSIDE RECORDS SUMMARY | 2025-02-15 11:56 | XMS_ITS | Clinical Summary ---
Author Organization [facility] [address] [place] [address] [place] [phone] Phone Care Team Providers Care Composite Layup Worker Name Role Phone Teresa Winters MD Primary Care Provider [phone] Allergies No known active allergies Medications glycerin-witch [...] 08/07/2024 12/22/2024 Overview (10/18/2024): 1. [facility] site: [facility]: [address] [place] [address] ([phone]) 2. Delivery site: [facility] 3. Mobile Mommas: No 4. Dating criteria: [...] 1. [facility] site: [address] 2. Delivery site: [facility] 3. Mobile Mommas: no 4. Dating criteria: [...] Elevated early GTT- 3hr ordered Morbid obesity ([facility] V24, [facility] V28) 11/10/2015 12/22/2024 Overview (11/09/2024): BMI- [...] BMI of 50 by 28wks transfer to [facility] DVT prophylaxis- Lovenox if CS and BMI [...] BMI of 50 by 28wks transfer to [facility] DVT prophylaxis- Lovenox if CS and BMI >35 Encounters Date Type Department Care Team Description 12/22/2024 1:00 PM EDT Routine Obstetrics and Gynecology - [address] [phone] Nancie Lenz CNM state (Primary Dx); Grief; Depression screening 11/15/2024 Telephone Obstetrics [facility]necology - [facility] [address] [place] [address] Claudia Arteaga CNM from Last 3 Months Immunizations Name Administration Dates Next Due DTP 10/06/1996, 3,1991,1991,1991 [id number] (Pentacel) 2mo to less than 5yo 07/25/1992,1991,1991,1990 HPV, Quadrivalent 10/21/2007 Hepatitis B (Mhhgqjl-U-Nbyju , Recombivax HB-Adult) 19yo and older 07/17/2013 [...] ed Within the last 3 months, ho sirena many times did you visit the emergency [...] care for your loved ones. For example, residential child care counselor or elderly care for an older adult? [...] Labor Labor/2nd/3rd Weight Sex Type Anes PTL Blanca A1 A5 Name Clin 2017 Term 40w 0d 3629 g (128 oz) F Vag-S pont Livin g 8 9 miriam bobby navarro tt-ho lland er Delivery Location:[facility] 2024 Term 40w 1d 0h 21m 0h 18m/0h 03m 3610 g (127.3 oz) F Vag-S pont Epidur al N Livin g 8 9 Remedios Heredi a Juliana lle L Dougl as, DO Complications:None Delivery Location:[facility] ([facility] Last Filed Vital Signs Vital Sign Reading [...] PM EST Office Visit Internal Medicine - [facility] [address] [place] [address] Teresa Winters MD [address] [place] [address] Health Maintenance Due Date Last Done Comments [...] Procedure Name Priority Date/Time Associated Diagnosis Comments HPV Routine 10/29/2023 HIV SCREENING Routine 09/27/2017 from Last 3 Months or Most Recently Relevant to Health Maintenance Results * Cervical Cancer Screening: HPV (10/29/2023) Cervical Cancer Screening: HPV negative, abstracted Historical Provider HEALTH MAINTENANCE Final Result * HIV Screening (09/27/2017) HIV Screening abstracted Historical Provider HEALTH MAINTENANCE Final Result from Last 3 Months or Most Recently Relevant to Health Maintenance Insurance [facility] Advance Directives * Full Code - Confirmed (Latest Code Status on File) Date Activated Date Inactivated Comments 11/09/2024 9:31 PM 11/11/2024 9:04 PM Care Teams Composite Layup Worker Relationship Specialty Start Date End Date Teresa Wniters MD [address] [place] [phone] PCP - General Internal Medicine 12/15/24
--- OUTSIDE RECORDS SUMMARY | 2025-02-15 11:56 | XMS_ITS | Clinical Summary ---
Author Organization [facility] Address [address] [address] Phone Care Team Providers Care Diving Fisher Name Role Phone Pcp, Unknown Primary Care [...] 2012 COVID-19 VACCINE (2023-2 5 season) 2024 INFLUENZA VACCINE (#1) 2025 RSV VACCINE (1 - 1-dose 75+ series) 2066 HEPATITIS A VACCINES Aged Out No long [...] on patient's age to complete this topic Medical Devices Not on file Insurance [employer] W[employer]CO [facility] [employer] Care Teams Diving Fisher Relationship Specialty Start Date End Date Pcp, Unknown PCP - General 08/08/24 Additional Source Comments The information contained in this document represents components of the legal health record. It is not the complete legal health record.[facility]
--- NOTE | 2025-03-12 14:17 | HO.ANESPROP2 ---
Documented by User: Juliette Marley NP 04/02/25 13:40 HPI - Anesthesia Eval Consult details Narrative: 34 yr old female for cholecystectomy Laparoscopic,possible open,possible Repair Umbilical Hernia, scheduled 04/09/25 [facility] Active Problems Active Problems: All Active Problems (Updated 12/25/24 @ 00:02 by Tyler Wood) Upper abdominal pain (Acute) Acute upper respiratory infection (Acute) Subchorionic hemorrhage in first trimester (Acute) Past Medical History Medical History Upper abdominal pain Social History Social History Patient Tobacco Use Status: Never used Tobacco Use of substances other than those prescribed or required for medical reasons: No Are you DNR?: No Advance Directives: No Advance Directives Information Provided: Yes Meds Allergies Allergy/AdvReac Type Severity Reaction Status Date / Time SEASONAL ALLERGIES Allergy Unknown ITCHY, Uncoded 12/24/24 19:30 NASAL CONGESTION Exam Pertinent Lab Results Pertinent Lab Results: Laboratory Tests 12/24/24 20:21 WBC 7.8 RBC 4.51 Hgb 13.3 Hct 39.0 Plt Count 288 Sodium 141 Potassium 4.0 BUN 9 Creatinine 0.64 Documented by User: Franco Vásquez MD 04/09/25 10:07 [facility] Past Medical History Medical History Upper abdominal pain Family History Family history of problems with anesthesia: No Surgical History History of Problems with Anesthesia: Unobtainable Social History Social History Patient Tobacco Use Status: Never used Tobacco Use of substances other than those prescribed or required for medical reasons: No Are you DNR?: No Advance Directives: No Advance Directives Information Provided: Yes Meds Allergies Allergy/AdvReac Type Severity Reaction Status Date / Time SEASONAL ALLERGIES Allergy Unknown ITCHY, Uncoded 12/24/24 19:30 NASAL CONGESTION Exam Exam Date and Time: 04/09/2025 Airway Mallampati Class: III TM Dist: >3cm Neck ROM: Full Heart: rrr Lungs: ctab vesicular Assessment and Plan Assessment Anesthesia Assessment: Anesthesia Plan Discussed and Chart Reviewed Final Anesthetic Review Family History of Problems with Anesthesia: No History of Problems with Anesthesia: Unobtainable NPO: Yes ASA Class: II Final Preanesthetic Review: No Changes in Pt Med Stat, Meds/Allgs Chart Reviewed, Consent Obtained/Reviewed and Anes Risks/Benef Reviewed Patient Risk: Low Procedure Risk: Low Anesthetic Plan Anesthetic Plan: GA Disposition: Standard PACU
[2025-03-12 14:46] VITALS: BMI 35.7
[2025-04-09] VITALS (17 sets, daily range): BP systolic 112–142; BP diastolic 72–103; PULSE 68–93; RESP 10–20; TEMP 36.4–36.8; O2SAT 92–100; BMI 33.7
[2025-04-09] MEDS: Lactated Ringers 1,000 ML 100 ML IVCONT (09:20)
[2025-04-09 09:21] LABS: UPreg QC Valid YES
--- NOTE | 2025-04-09 09:48 | MHC.SHP ---
Pre-Procedural Eval Section A - 24 Hr Update-Section A only Date of Service: 04/09/25 Section B - Complete if H&P > 30 days Chief Complaint: Calculus of gallbladder without cholecystitis Details of Present Illness: Has periodic right upper quadrant pain gallstones Relevant Family History (Specify if Yes): No Relevant Social History: None Medical History: Significant History (Obesity) History of Previous Operations: No relevant previous surgery Allergies: Allergies Allergy/AdvReac Type Severity Reaction Status Date / Time SEASONAL ALLERGIES Allergy Unknown ITCHY, Uncoded 12/24/24 19:30 NASAL CONGESTION Review of Systems Sugical H&P ROS: Negative: Constitution, Cardiovascular and Respiratory Exam Surgical H&P Exam: Normal: Heart, Normal: Lungs and Normal: Abdomen Exam Comment: Obese Plan Diagnosis/Plan: Unchanged I have reviewed the history and physical and performed a pertinent physical examination on my patient. No changes have occurred unless specified. Time Spent With Patient Time: Total time managing care of this patient today ____ minutes.
[2025-04-09] MEDS: cefoTEtan disodium 2 GM VIAL IVPUSH (10:42)
--- NOTE | 2025-04-09 11:29 | W.PM.OPN ---
Operative Note Operative Note Date of Service: 04/09/25 Narrative: Preop diagnosis: Symptomatic gallstones Postop diagnosis: The same Procedure: Laparoscopic cholecystectomy Surgeon: Paul Lucas MD patient support assistant: MIKE Proctor The patient is a 34 year female with gallstones with periodic right upper quadrant pain. She therefore wanted to proceed with cholecystectomy. She understood the technique of the planned procedure as well as the risks, benefits, and alternatives. She was brought to the operating room and placed supine under general anesthesia via endotracheal tube. The abdomen was prepped and draped in the usual sterile fashion. A surgical time-out was done. The patient was on scheduled IV antibiotics . I made a short incision on the supraumbilical area using blade 15. This was carried down through the full-thickness of the skin and thick subcutaneous fat to the fascia. The fascia was incised. The peritoneum was entered. Through this incision a Toure port was introduced pneumoperitoneum was introduced to a pressure of 15 mm Hg. From here on the rest of procedure was done under vision with the 10 mm flat laparoscope. With laparoscopic visualization inserted a 5/12 mm port in the epigastric area. Two 5 mm ports introduced a small incision below the subcostal margin along the anterior axillary line and the midclavicular line. Graspers were placed through these working ports. The patient was placed in a head up and [id number] position The gallbladder was seen. This was supple and nondistended without any signs of inflammation acutely. I was able to apply a grasper at the fundus to retract this cephalad. I proceeded to apply another grasper towards the pouch of the gallbladder to retract this laterally. At this point the gallbladder was being retracted in the cephalad and lateral fashion to put the area of the cystic duct on stretch. I carefully dissected the neck of the gallbladder using the Maryland dissector to tease off the peritoneal lining and by doing so was able to visualize the cystic duct. With continued dissection using the Maryland dissector, I was able to visualize the cystic duct and its confluence with the neck of the gallbladder. The cystic artery was also seen running alongside this. We had achieved a critical view of the hepatocystic triangle at this point. I therefore applied clips on the cystic duct with 2 clips being applied distally. The cystic duct was transected between clips with Endo scissors. I applied clips on the cystic artery with 2 clips applied distally. The cystic artery was transected with the clips with Endo scissors as well. With traction of the gallbladder away from the liver bed I proceeded to then carefully divide the hilum with the electrocautery spatula. I incised the peritoneum of the gallbladder to create a plane of dissection between the gallbladder wall and the liver bed. I developed this plane of dissection with a combination of blunt dissection with the tip of the spatula as well as electrocautery until the entire gallbladder was completely from the liver bed. The gallbladder was retrieved through an endobag through the umbilical incision. I reinserted all ports and re-insufflated. I copiously irrigated and suctioned out the irrigant fluid. There was note of good hemostasis on the surgical site including the liver bed. I observed all 4 quadrants and there was no other pathology seen. I examined the area adjacent to the umbilical port site and there was no evidence of any hernia and this area. There was no evidence of any bowel injury or bile leak. With hemostasis confirmed, we desufflated through the port sites. The ports were removed, with the umbilical port removed last. I proceeded to palpate the fascia surrounding the umbilical incision and there did not seem to be any defect that would represent an umbilical hernia. Whenever he had small defect that was seen on CAT scan may have been incorporated with the incision. The fascia of the umbilical incision was closed with a [id number]-[id number] Polysorb 0 stitch. Skin closure was achieved on all incisions using Polysorb 4-0 subcuticular running sutures. All incisions were infiltrated with Marcaine 0.5% for postop analgesia. Steri-Strips and dressings were applied and the procedure was completed The patient tolerated procedure well. There were no immediate complications. Initial and final counts of sponges and instruments were correct. Estimated blood loss was about 25 cc. The patient was extubated without difficulty and transferred to the recovery room with stable vital signs.
[2025-04-09] MEDS: oxyCODONE HCl Immed Release 5 MG TABLET PO (15:05)
[2025-04-09 17:08] LABS: ~Hepatitis A Antibody IgG 9.31 S/CO (0.00-0.99)
[2025-04-09 17:10] LABS: HBS Num1 12.84 mIU/mL (0-7.99); HBc Num1 0.07 S/CO (0.00-0.79); HBsAGNum1 0.36 S/CO (0.00-0.99); HIV Num 1 0.05 S/CO (0.00-0.99); Hepatitis B Surface Antigen Negative (Negative); ~HepC Num1 0.07 S/CO (0.00-0.79); ~Hepatitis B Surface Antibody REACTIVE (Nonreactive)
[2025-04-10 11:54] LABS: Hepatitis C Ab Exposure Source NonReactive (Nonreactive)
--- NOTE | 2025-04-12 10:39 | HO.ANESEVENT ---
Anesthesia Event Note Date of Service: 04/12/25 Event Note: Discussed reactive serology results with Dr. Lucas and he agreed to discuss the results with the patient Time Spent With Patient Time: Total time managing care of this patient today ____ minutes.
== END 2025-04-09 16:00 | disposition home or self-care (01) ==
PROVIDERS: Nurse Practitioner; PCP Internal Medicine; Visit Provider Surgery
PROC: 0FT44ZZ Resection of Gallbladder, Percutaneous Endoscopic Approach (ICD-10-PCS; CPT 47562; principal; 2025-04-09 10:50)
DX: K80.10 Calculus of gallbladder with chronic cholecystitis without obstruction (principal); R10.11 Right upper quadrant pain; J30.2 Other seasonal allergic rhinitis; Z79.1 Long term (current) use of non-steroidal anti-inflammatories (NSAID); Z79.899 Other long term (current) drug therapy
CPT/HCPCS: 47562; 36415; 81025; 86708; 86803; 88304; 99499; J0131; J0525; J1100; J1171; J1885; J2003; J2250; J2405; J2704; J2795; J3010

== ENCOUNTER → 2025-04-09 08:34 | Outpatient (BNV) | payer OTHER, SELFPAY | PROVIDERS: PCP Internal Medicine; Visit Provider Surgery | DX: K80.20 Calculus of gallbladder without cholecystitis without obstruction (principal) | CPT/HCPCS: 47562 ==

== ENCOUNTER 2025-04-20 11:31 | Outpatient (AMB) | payer OTHER, SELFPAY ==
--- NOTE | 2025-04-20 11:34 | A.OFFVIS_ITS ---
Vital Signs 04/20/25 11:42 Weight 186 lb BP 127/81 Blood Pressure Location Rt brachial Position Sitting Pulse 77 Intake Visit Reasons: S/P lap patrick, poss. umbilical hernia repair Intake Note: Patient here s/p Laparoscopic cholecystectomy. Patient c/o: no concerns. Reports incision healing well. No longer taking rx pain meds. Surgery (): 04-09-2025 Rn Clinical Research Required: No Accompanied by: Self / Same As Patient Allergies SEASONAL ALLERGIES Allergy (Unknown, Uncoded 04/20/25 11:41) ITCHY, NASAL CONGESTION HPI HPI S/P lap patrick, poss. umbilical hernia repair: Details: Doing well, denies significant pain. Slowly advancing diet common notes that constanza does not sit with her, she attributes this to tell long it has been since she has had it has previously given her right upper quadrant pain. She denies nausea vomiting. Had some difficulty sleeping because she states she is a stomach sleeper and apposition was uncomfortable for the 1st few days postop, states she only needed to take oxycodone once to help her sleep. She is concerned that the umbilical incision is . [facility] Medical History Upper abdominal pain Surgical History (Updated 04/20/25 @ 12:53 by Cristhian Proctor PA-C) S/P laparoscopic cholecystectomy (04/09/25) Social History Comment: Counts correct Patient Tobacco Use Status: Never used Tobacco Review of Systems Const All systems reviewed & are unremarkable except as noted in HPI and below Physical Exam Vital Signs: Last Vital Signs Pulse 77 04/20/25 11:42 BP 127/81 04/20/25 11:42 Const General: comfortable and no acute distress Orientation/consciousness: patient oriented x3 GI Other: Incision sites clean dry intact. No surrounding erythema, no fluctuance or fluid collections. There is some mild scabbing on the umbilical incision. No drainage , nontender. Inspection: No distended Palpation (GI): Soft to palpation, nontender and no guarding Neuro General: patient oriented x3 Assessment & Plan Assessment & Plan (1) S/P laparoscopic cholecystectomy: Onset Date: 04/09/25 Comment: Laparoscopic cholecystectomy Paul Hernández (04/09/2025) Code(s): Z90.49 - Acquired absence of other specified parts of digestive tract Category: Medical Plan 34-year-old female s/p laparoscopic cholecystectomy on 04/09/[address] Lucas returning to the office for routine follow-up. Patient doing very well, denying pain, initially had some pain causing difficulty sleeping 1st few nights postop, she took oxycodone which helped common no longer need recurring narcotics. Appetite and bowel function returned to baseline, she did note that positive in quite sit right with her however this is not new. I reassured her that she may need to cut some of these foods have permanently if she continues to have issues with this. Additionally she was concerned about possible separation of the umbilical incision site. However on exam the site appears to be intact there was some moderate scabbing which did look a little bit like separation however I removed the scalp and the wound appears intact. Otherwise incision sites are clean dry and intact, no concern for infection at this time. We will continue with activity restrictions for a total of 1 month, no heavy lifting greater than 15-20 lb. At this point no longer requiring follow-up, can return as needed with questions or concerns in the future Coding Level of Care Code Global (96306) Diagnoses S/P laparoscopic cholecystectomy Z90.49
[2025-04-20 11:42] VITALS: BP 127/81; PULSE 77
--- OUTSIDE RECORDS SUMMARY | 2025-04-20 14:49 | XMS_ITS | Clinical Summary ---
Author Organization [facility] Address [address] [address] Phone Care Team Providers Care Tape Recorder Repairer Name Role Phone Pcp, Unknown Primary Care [...] (18-6 5 YEARS) 2009 PAP SMEAR 2012 INFLUENZA VACCINE (#1) 2025 COVID-19 VACCINE ( - 2024-2 6 season) 2025 RSV VACCINE (1 - 1-dose 75+ [...] topic Medical Devices Not on file Insurance [employer] [facility] [employer] Care Teams Tape Recorder Repairer Relationship Specialty Start Date End Date Pcp, Unknown PCP - General 08/08/24 Additional Source Comments The information contained in this document represents components of the legal health record. It is not the complete legal health record.[facility]
--- OUTSIDE RECORDS SUMMARY | 2025-04-20 14:49 | XMS_ITS | Clinical Summary ---
Author Organization [facility] [address] [place] [address] [place] [phone] Phone Care Team Providers Care Assistant Designer Name Role Phone Teresa Winters MD Primary Care Provider [phone] Allergies No known active allergies Medications glycerin-witch [...] 08/07/2024 12/22/2024 Overview (10/18/2024): 1. [facility] site: [facility]: [address] [place] [address] ([phone]) 2. Delivery site: [facility] 3. Mobile Mommas: No 4. Dating criteria: [...] Course: test positive 07/10/202407/25 Overview (07/10/2024): 1. [facility] site: [address] 2. Delivery site: [facility] 3. Mobile Mommas: no 4. Dating criteria: [...] Elevated early GTT- 3hr ordered Morbid obesity ([facility] V24, [facility] V28) 11/10/2015 12/22/2024 Overview [...] BMI of 50 by 28wks transfer to [facility] DVT prophylaxis- Lovenox if CS and BMI [...] BMI of 50 by 28wks transfer to [facility] DVT prophylaxis- Lovenox if CS and BMI >35 Immunizations Immunization Administration Dates Next Due DTP 10/06/1996, 3,1991,1991,1991 [id number] (Pentacel) 2mo to less than 5yo 07/25/1992,1991,1991,1990 HPV, Quadrivalent 10/21/2007 Hepatitis B (Antekbn-O-Qxvrk , Recombivax HB-Adult) 19yo and older 07/17/2013 [...] care for your loved ones. For example, child adolescent care or elderly care for an older adult? [...] Date Recorded What is your living situation? Unrecognized valu e 11/09/2024 Interpersonal Safety Answer Date Record ed Physical Abuse Unrecognized value 11/11/2024 Verbal Abuse Unrecognized value 11/11/2024 Comments No Sex and Gender Information Value Date Recorded Sex Assigned at Female 11/11/2024 10:20 AM EDT Legal Sex Female 12:41 AM EST Gender Identity Female 11/11/2024 10:20 AM EDT Sexual Orientation Straight 11/11/2024 10 :20 AM EDT Obstetrics History Para Term AB IAB SAB Ectopic Multiple Livin g Live Births 2 2 2 0 0 2 2 Date Outcome GA Total Labor Labor/2nd/3rd Weight Sex Type Anes PTL Blanca A1 A5 Name Clin 2017 Term 40w 0d 3629 g (128 oz) F Vag-S pont Livin g 8 9 miriam a ramon tt-ho lland er Delivery Location:[facility] 2024 Term 40w 1d 0h 21m 0h 18m/0h 03m 3610 g (127.3 oz) F Vag-S pont Epidur al N Livin g 8 9 Remedios Heredi a Juliana lle L Dougl as, DO Complications:None Delivery Location:[facility] ([facility]) Last Filed Vital Signs Vital [...] PM EST Office Visit Internal Medicine - [facility] [address] [place] [address] Teresa Winters MD [address] [place] [phone] Health Maintenance Due Date Last Done Comments HPV Vaccines (2 - 3-dose series) 11/18/2007 10/21/2007 Cholesterol Screening (Lipid Panel) 07/24/2023 Hepatitis C Screening 07/24/2023 Depression Screening 06/24/2024 COVID-19 Vaccine ( - season) 2025 11/29/2020, 11/08/2020 Influenza Vaccine (#1) 2025 03/24/2018 Social Influencers of Health Screening 11/11/2025 11/11/2024 Cervical Cancer Screening: HPV 10/28/2028 10/29/2023 DTaP,Tdap,and Td Vaccines (10 - Td or Tdap) 09/03/2034 09/03/2024, 01/31/2018, 05/27/2013, Additional history exists RSV Immunization Adult Patients (1 - 1-dose 75+ series) 2066 HIB Vaccines Completed 07/25/1992, 06/1992, 1991, Additional [...] Results * Cervical Cancer Screening: HPV (10/29/2023) [facility] Cervical Cancer Screening: HPV negative, abstracted Historical Provider HEALTH MAINTENANCE Final Result * HIV Screening (09/27/2017) [facility] HIV Screening abstracted Historical Provider HEALTH MAINTENANCE Final Result from Last 3 Months or Most Recently Relevant to Health Maintenance Insurance [facility] Advance Directives * Full Code - Confirmed (Latest Code Status on File) Date Activated Date Inactivated Comments 11/09/2024 9:31 PM 11/11/2024 9:04 PM Care Teams Assistant Designer Relationship Specialty Start Date End Date Teresa Winters MD [address] [place] [phone] PCP - General Internal Medicine 12/15/24
== END 2025-04-20 11:48 | disposition home or self-care (01) ==
LOC: HO.HGS 11:32
PROVIDERS: PCP Internal Medicine; Visit Provider Surgery
DX: Z90.49 Acquired absence of other specified parts of digestive tract (principal)
CPT/HCPCS: 99024

== ENCOUNTER → 2025-04-20 11:31 | Outpatient (BNVA) | payer OTHER, SELFPAY | PROVIDERS: PCP Internal Medicine; Visit Provider Surgery | DX: Z48.815 Encounter for surgical aftercare following surgery on the digestive system (principal); Z98.890 Other specified postprocedural states; Z90.49 Acquired absence of other specified parts of digestive tract | CPT/HCPCS: 99212 ==